=== PATIENT | female | born 1955 | race Caucasian/White ===

== ENCOUNTER → 2018-10-23 | Outpatient (CLI) | payer OTHER ==
[~2018-10-23] VITALS: Ht 160 cm; Wt 52.2 kg
[~2018-10-23] MED LIST: ALLERGY RELIEF10 M3 PO; BENADRYL25 MG PO; CALCIUM 600 +1 EAC1 PO; CYMBALTA30 MG PO; GLUCOSAMINE &1 EAC1 PO; HYDROCODON-ACE1 EAC5 PO; LISINOPRIL10 MG PO; METHADONE HCL 110 M1 PO; MORPHINE SULFAT15 M5 PO; MORPHINE SULFAT30 M5 PO; NEURONTIN 300300 M1 PO; ONE DAILY FOR1 EAC1 PO; OSTEO BI-FLEX1 EAC1 PO; OXYCODONE HCL10 MG PO; RANITIDINE 150150 M1 PO; SYNTHROID125 MC1 PO; UNICOMPLEX M TA1 TA1 PO; VITAMIN D IV
[2018-10-23 09:32] VITALS: BP 108/72
--- NOTE | 2018-10-23 10:19 | NUR ---
Pain Clinic Assessment: 1. History of Osteoarthritis: Left Lower Extremity Left Upper Extremity Right Lower Extremity Right Upper Extremity History of Rheumatoid Arthritis: Not Applicable 2. Height: 5 ft. 3 in. 160.0 cm. Weight: 115.0 lb. oz. 52.164 kg. Patient's BMI: 20.4 3. Vital Signs: BP: 108/72 Pulse: 70 Resp: 14 Temp: 02 Sat: 98 ECG Mon: 4. Pain Intensity: 7 5. Fall Risk: Dizziness: N Needs help standing or walking: N Fallen in the last 3 months: N Fall risk comments: 6. Patient on Blood Thinner: None 7. History of Hypertension: Y 8. Opioid Therapy greater than 6 weeks: Y Opiate Contract Signed: 9. Risk Assessment Tool Provided: LOW-0 10. Functional Assessment Tool: 50/70 11. Recreational Drug Use: Never Drug Type: Tobacco Use: Former Smoker Tobacco Type: Amount or Packs/day: How Many Years: Alcohol Use: Yes Frequency: Daily Quant: 1-2
== END | disposition home or self-care (01) ==
LOC: PAIN 06:50
DX: M54.16 Radiculopathy, lumbar region (principal); G89.29 Other chronic pain; I10 Essential (primary) hypertension; K75.9 Inflammatory liver disease, unspecified; E07.9 Disorder of thyroid, unspecified; Z98.890 Other specified postprocedural states; Z79.899 Other long term (current) drug therapy

== ENCOUNTER → 2018-12-25 | Outpatient (CLI) | payer OTHER ==
[~2018-12-25] VITALS: Ht 160 cm; Wt 56.3 kg
[2018-12-25 08:34] VITALS: BP 136/77
--- NOTE | 2018-12-25 08:50 | NUR ---
Pain Clinic Assessment: 1. History of Osteoarthritis: Left Lower Extremity Left Upper Extremity Right Lower Extremity Right Upper Extremity History of Rheumatoid Arthritis: Not Applicable 2. Height: 5 ft. 3 in. 160.0 cm. Weight: 124.2 lb. oz. 56.337 kg. Patient's BMI: 22.0 3. Vital Signs: BP: 136/77 Pulse: 60 Resp: 14 Temp: 02 Sat: 98 ECG Mon: 4. Pain Intensity: 7 5. Fall Risk: Dizziness: N Needs help standing or walking: N Fallen in the last 3 months: N Fall risk comments: 6. Patient on Blood Thinner: None 7. History of Hypertension: Y 8. Opioid Therapy greater than 6 weeks: Y Opiate Contract Signed: 9. Risk Assessment Tool Provided: LOW-0 10. Functional Assessment Tool: 50/70 11. Recreational Drug Use: Never Drug Type: Tobacco Use: Former Smoker Tobacco Type: Amount or Packs/day: How Many Years: Alcohol Use: Yes Frequency: Quant:
--- NOTE | 2019-01-02 12:16 | HPC ---
[facility] [address] [place] [address] PAIN MANAGEMENT CONSULTATION Name: KELSEY FOWLER Room #: REG MIKEL Jones.#: [id number] Admission: 12/25/18 ������������������ Attend Phys: Lj Cid DO Discharge: ������������������ Date of : 51 Report #: [id number] THIS REPORT FOR: //name// CC: Ashley Cid DATE OF SERVICE: 12/25/2018 CHIEF COMPLAINT: Low back pain and bilateral lower extremity pain with paresthesias. HISTORY OF PRESENT ILLNESS: As you know, the patient is a very pleasant 63-year-old female returning today in followup visit to undergo next in the series of lumbar epidural injections. The patient reports good and prolonged efficacy with previous epidural injection, noting improvement of 75% lasting for nearly 6 weeks. Unfortunately, her symptoms have begun to return. She now indicates pain is constant, steady, continuous, burning, aching, cramping, shooting, tender, stabbing, sharp, throbbing, pulling, pounding, gnawing, crushing and debilitating. She indicates pain is exacerbated with lying down and remaining still and improves with movement, repositioning, activity and epidural injections. She returns today in followup visit to undergo next in the series of epidural injections as she notes good benefit. ALLERGIES: CODEINE, AMOXICILLIN AND VANCOMYCIN. CURRENT MEDICATIONS: See chart. SOCIAL HISTORY: The patient denies tobacco, alcohol, IV or illicit drug use. She is unaccompanied today. PQRS: The patient has known arthritic changes of the lumbar spine, bilateral hands and bilateral knees. She denies any rheumatoid arthritis. She is placing current pain score at a 7/10. She is not a fall risk and has not had fall in the last 3 months. She is not on blood thinners. She is treated for hypertension. She is on chronic opioids, but has a low opioid addiction potential. Pain impact score of 50/70 indicating severe interference of daily activities secondary to pain. PHYSICAL EXAMINATION: VITAL SIGNS: Blood pressure 136/77, pulse 60, respiratory rate 14 and unlabored. The patient is 98% on room air. Height 5 feet 3 inch tall, weight 124.2 pounds and BMI calculated 22. GENERAL: Well-developed, well-nourished, well-hydrated 63-year-old female appearing stated age, pain is rated around 7/10. [address] [address] PAIN MANAGEMENT CONSULTATION Name: KELSEY FOWLER Room #: REG CLTasha JonesVarinder#: [id number] Admission: 12/25/18 ������������������ Attend Phys: Lj Cid DO Discharge: ������������������ Date of : 51 Report #: [id number] HEENT: Normocephalic and atraumatic. Pupils are equal, round and reactive to light. EXTREMITIES: Show no clubbing, no cyanosis and no edema. MUSCULOSKELETAL: Lower extremity strength is symmetrical again today 5/5. Muscle bulk and tone is equal and symmetrical in comparing left lower extremity to right. Seated straight leg raising is negative. Supine straight leg raising remains positive on the right. Reginaldo's test is negative. Modified Gaenslen's is positive for axial low back pain. Ankle clonus is negative. ASSESSMENT: 1. Symptomatic lumbar radiculopathy. 2. Spinal stenosis of the lumbar spine. 3. Displacement of a lumbar intervertebral disk with radiculopathy. 4. Lumbosacral spondylosis with radiculopathy. 5. Lumbar degeneration. 6. Chronic intractable pain. PLAN: 1. The patient returns today in followup visit to undergo next in the series of lumbar epidural injections under fluoroscopic guidance. The patient feels the epidural injections are working beneficially for pain control. Previous epidural injection gave 75% improvement in overall pain lasting for nearly 6 weeks. Unfortunately, her symptoms have begun to return. She returns to undergo next in the series of lumbar epidural injections. She has been advised risks and benefits, states understood and wished to proceed. 2. No medication changes made at today's visit. The patient will continue current medical therapy as previously prescribed. 3. We will see the patient back in followup visit on an as needed basis for next in the series of lumbar epidural injections. PROCEDURE NOTE DESCRIPTION OF PROCEDURE: L5-S1 right paramedian epidural steroid injection under fluoroscopic guidance. After obtaining written consent, the patient was taken back to fluoroscopy suite, placed in prone position with pillow under abdomen to decrease lumbar lordosis. Skin overlying the lumbosacral area was then prepped and draped in aseptic fashion. L5-S1 vertebral interspace identified by AP fluoroscopy. Skin and subcutaneous tissue overlying target site of injection anesthetized with 3 mL of 1% lidocaine. A 20-gauge 3-1/2 inch Tuohy needle was advanced under fluoroscopic guidance towards the epidural space using a right paramedian approach. Epidural space identified using loss of resistance to air technique. After negative aspiration for heme or cerebrospinal fluid, 1 mL of Omnipaque injected. Lumbar epidurogram [address] [address] PAIN MANAGEMENT CONSULTATION Name: KELSEY FOWLER Room #: REG MIKEL Colón#: [id number] Admission: 12/25/18 ������������������ Attend Phys: Lj Cid DO Discharge: ������������������ Date of : 51 Report #: [id number] was confirmed using both AP and lateral fluoroscopy. After negative aspiration for heme or cerebrospinal fluid, 5 mL of a solution containing 2 mL 40 mg per mL, 80 mg total triamcinolone, 3 mL lidocaine 1% injected slowly. Needle retracted alf, flushed with 1 mL of 1% lidocaine and then removed. Sterile bandage placed over injection site. No new motor deficits present in lower extremity following procedure. The patient tolerated the procedure well and carefully escorted to recovery room in stable condition. No apparent complications. After meeting discharge criteria, the patient discharged home. ��������������������������������������������� <ELECTRONICALLY SIGNED> ���������������������������������������� By: Lj Cid DO ��������������������������������������������� 01/02/19 1216 0712 [id number] Lj Cid DO /nt
== END | disposition home or self-care (01) ==
LOC: PAIN 06:34
DX: M51.16 Intervertebral disc disorders with radiculopathy, lumbar region (principal); M48.061 Spinal stenosis, lumbar region without neurogenic claudication; M47.27 Other spondylosis with radiculopathy, lumbosacral region; G89.29 Other chronic pain; Z87.891 Personal history of nicotine dependence; Z88.1 Allergy status to other antibiotic agents; Z88.8 Allergy status to other drugs, medicaments and biological substances; Z79.899 Other long term (current) drug therapy

== ENCOUNTER → 2019-02-19 | Outpatient (CLI) | payer OTHER ==
[~2019-02-19] VITALS: Ht 160 cm; Wt 50.8 kg
--- NOTE | ~2019-02-19 | HPC ---
[facility] [address] [place] [address] PAIN MANAGEMENT CONSULTATION Name: KELSEY FOWLER Room #: REG Tasha Marquis.#: [id number] Admission: 02/19/19 ������������������ Attend Phys: Lj Cid DO Discharge: ������������������ Date of : 51 Report #: [id number] THIS REPORT FOR: //name// CC: SAMANTHA Cid DATE OF SERVICE: 02/19/2019 CHIEF COMPLAINT: Low back pain, bilateral lower extremity pain and paresthesias, right greater than left. HISTORY OF PRESENT ILLNESS: As you know, the patient is a very pleasant 63-year-old female returning in followup visit to undergo next in the series of lumbar epidural injections. The patient reports pain level of 6/10 today. The patient states pain is constant, steady, continuous, burning, aching, cramping, shooting, tenderness, stabbing, sharp, throbbing, pulling, pounding, gnawing, crushing when describing pain. She states that lying down being still and movement tends to exacerbate symptoms; lying down, medications, hot bath and epidural injections tend to improve pain. She indicates 80% improvement in overall pain with previous epidural injection. Unfortunately, the patient's symptoms have begun to return. She returns today in followup visit to undergo next in the series of injections. No new injury, no new trauma that precipitated recurrence of pain. ALLERGIES: CODEINE, AMOXICILLIN, AND VANCOMYCIN. CURRENT MEDICATIONS: See chart. SOCIAL HISTORY: The patient denies tobacco, alcohol, IV or illicit drug use. She is unaccompanied today. PQRS: The patient has known osteoarthritic changes of the lumbar spine, bilateral hands and bilateral knees. Denies rheumatoid arthritis. She is placing pain today at around 6/10, not a fall risk, has not had a fall in last 3 months, not on blood thinners, but is treated for hypertension. She is on chronic opioids with low opiate addiction potential. She is placing pain impact score 50/70 indicating severe interference of daily activities secondary to pain. PHYSICAL EXAMINATION: VITAL SIGNS: Blood pressure 124/82, pulse 84, respiratory rate 16 and unlabored. The patient is 96% on room air. Height 5 feet 3 inches tall, weight 112 pounds, BMI calculated 19.8. GENERAL: Well-developed, well-nourished, well-hydrated, 63[place] [address] PAIN MANAGEMENT CONSULTATION Name: KELSEY FOWLER Room #: REG CLI Renetta#: [id number] Admission: 02/19/19 ������������������ Attend Phys: Lj Cid DO Discharge: ������������������ Date of : 51 Report #: [id number] appearing stated age, pain is rated around 6/10. HEENT: Normocephalic, atraumatic. Pupils are equal, round, reactive to light. EXTREMITIES: Show no clubbing, no cyanosis, and no edema. MUSCULOSKELETAL: Lower extremity strength remains symmetrical. Muscle bulk and tone is equal and symmetrical in lower extremities. Muscle strength 5/5. Seated straight leg raising negative. Supine straight leg raising positive on the right. Reginaldo's test negative. Gait mildly antalgic favoring right lower extremity over left. ASSESSMENT: 1. Symptomatic lumbar radiculopathy. 2. Spinal stenosis of the lumbar spine. 3. Displacement of lumbar intervertebral disk with radiculopathy. 4. Lumbosacral spondylosis with radiculopathy. 5. Lumbar degeneration. 6. Chronic intractable pain. PLAN: 1. The patient has returned today in followup visit to undergo next in the series of lumbar epidural injections under fluoroscopic guidance to build on success of previous intervention. The patient reports a 60% improvement in overall pain with previous epidural injection, returning today to undergo next in the series in hopes of improving pain further. The patient denies new injury, new trauma or any changes in medical history since our last visit. 2. No medication changes made at today's visit. The patient will continue current medical therapy as previously prescribed. 3. We will see the patient back in followup visit on an as needed basis for possible next in the series of lumbar epidural injections. PROCEDURE NOTE DESCRIPTION OF PROCEDURE: L5-S1 right parasagittal epidural steroid injection under fluoroscopic guidance. After obtaining written consent, the patient was taken back to fluoroscopy suite, placed in prone position with pillow under abdomen to decrease lumbar lordosis. Skin overlying lumbosacral area, then prepped and draped in aseptic fashion. Lumbar intervertebral spaces identified by AP fluoroscopy. Skin and subcutaneous tissue overlying target site of injection and anesthetized with 3 mL of 1% lidocaine. A 20-gauge 3-1/2 inch Tuohy needle advanced under fluoroscopic guidance towards the epidural space using right parasagittal approach. Epidural space identified using loss of resistance to air technique. After negative aspiration for heme or cerebrospinal fluid, 1 mL of Omnipaque injected. Lumbar epidurogram confirmed using both AP and lateral fluoroscopy. After negative aspiration for [facility] [address] [place] [address] PAIN MANAGEMENT CONSULTATION Name: KELSEY FOWLER Room #: REG MIKEL Colón#: [id number] Admission: 02/19/19 ������������������ Attend Phys: Lj Cid DO Discharge: ������������������ Date of : 51 Report #: [id number] heme or cerebrospinal fluid, 5 mL of solution containing 2 mL 40 mg per mL, 80 mg total triamcinolone, 3 mL lidocaine 1% injected slowly. Needle then retracted approximately half way, flushed with 1 mL of 1% lidocaine and removed. Sterile bandage placed over injection site. No new motor deficits present in the lower extremities following procedure. The patient tolerated procedure well, carefully escorted to recovery room in stable condition. No apparent complications. After meeting discharge criteria, the patient discharged home. ��������������������������������������������� ���������������������������������������� By: ��������������������������������������������� 1654 [id number] Lj Cid DO /nt
[2019-02-19 09:26] VITALS: BP 124/82
--- NOTE | 2019-02-19 09:46 | NUR ---
Pain Clinic Assessment: 1. History of Osteoarthritis: Left Lower Extremity Left Upper Extremity Right Lower Extremity Right Upper Extremity History of Rheumatoid Arthritis: Not Applicable 2. Height: 5 ft. 3 in. 160.0 cm. Weight: 112.0 lb. oz. 50.803 kg. Patient's BMI: 19.8 3. Vital Signs: BP: 124/82 Pulse: 84 Resp: 16 Temp: 02 Sat: 96 ECG Mon: 4. Pain Intensity: 6 5. Fall Risk: Dizziness: N Needs help standing or walking: N Fallen in the last 3 months: N Fall risk comments: 6. Patient on Blood Thinner: None 7. History of Hypertension: Y 8. Opioid Therapy greater than 6 weeks: Y Opiate Contract Signed: 9. Risk Assessment Tool Provided: LOW-0 10. Functional Assessment Tool: 50/70 11. Recreational Drug Use: Never Drug Type: Tobacco Use: Former Smoker Tobacco Type: Amount or Packs/day: How Many Years: Alcohol Use: Yes Frequency: Quant:
== END | disposition home or self-care (01) ==
LOC: PAIN 06:55
DX: M51.16 Intervertebral disc disorders with radiculopathy, lumbar region (principal); M47.27 Other spondylosis with radiculopathy, lumbosacral region; M48.061 Spinal stenosis, lumbar region without neurogenic claudication; G89.29 Other chronic pain; M19.90 Unspecified osteoarthritis, unspecified site; I10 Essential (primary) hypertension; Z88.1 Allergy status to other antibiotic agents; Z88.8 Allergy status to other drugs, medicaments and biological substances; Z87.891 Personal history of nicotine dependence; Z79.899 Other long term (current) drug therapy

== ENCOUNTER → 2019-04-30 | Outpatient (CLI) | payer OTHER ==
[~2019-04-30] VITALS: Ht 160 cm; Wt 54.2 kg
[2019-04-30 08:51] VITALS: BP 141/85
--- NOTE | 2019-04-30 09:00 | NUR ---
Pain Clinic Assessment: 1. History of Osteoarthritis: Left Lower Extremity Left Upper Extremity Right Lower Extremity Right Upper Extremity History of Rheumatoid Arthritis: Not Applicable 2. Height: 5 ft. 3 in. 160.0 cm. Weight: 119.4 lb. oz. 54.159 kg. Patient's BMI: 21.2 3. Vital Signs: BP: 141/85 Pulse: 65 Resp: 14 Temp: 02 Sat: 100 ECG Mon: 4. Pain Intensity: 6 5. Fall Risk: Dizziness: N Needs help standing or walking: N Fallen in the last 3 months: N Fall risk comments: 6. Patient on Blood Thinner: None 7. History of Hypertension: Y 8. Opioid Therapy greater than 6 weeks: Y Opiate Contract Signed: 9. Risk Assessment Tool Provided: LOW-0 10. Functional Assessment Tool: 50/70 11. Recreational Drug Use: Never Drug Type: Tobacco Use: Former Smoker Tobacco Type: Amount or Packs/day: How Many Years: Alcohol Use: Yes Frequency: Daily Quant: 1-2 GLASSES OF WINE
--- NOTE | 2019-05-07 07:57 | HPC ---
[facility] [address] [place] [address] PAIN MANAGEMENT CONSULTATION Name: KELSEY FOWLER Room #: REG MIKEL Jones.#: [id number] Admission: 04/30/19 Attend Phys: Lj Cid DO Discharge: Date of : 51 Report #: [id number] THIS REPORT FOR: //name// CC: Ashley Cid DATE OF SERVICE: 04/30/2019 REFERRING PHYSICIAN: Ashley Cerna MD CHIEF COMPLAINT: Low back pain, bilateral lower extremity pain, right greater than left. HISTORY OF PRESENT ILLNESS: As you know, the patient is a very pleasant 63-year-old female who returns today in followup visit to undergo next in the series of lumbar epidural injections under fluoroscopic guidance. The patient reports excellent benefit with epidural injections, the most recent providing approximately 80% improvement in overall pain. She returns today in followup visit stating pain is constant, steady, continuous, burning, aching, cramping, shooting tender, stabbing, sharp, throbbing, pulling, pounding, gnawing, crushing, numbness and tingling. States pain is exacerbated with lying down, being still and movement, improves with repositioning activities and epidural injections. She returns today in followup visit, denying any new injury or trauma or even changes in medication management. She returns to undergo next in the series of lumbar epidural injections. ALLERGIES: CODEINE, AMOXICILLIN, AND VANCOMYCIN. CURRENT MEDICATIONS: See extensive list in chart. SOCIAL HISTORY: The patient denies tobacco, alcohol, IV or illicit drug use. She is unaccompanied today. PQRS: The patient has known arthritic changes of the lumbar spine, bilateral hands, bilateral knees, no rheumatoid arthritis. She is placing current pain score 6/10. She is not a fall risk, has not had a fall in last 3 months. She is not on blood thinners, but is treated for hypertension. She is on chronic opioids and has a low opiate addiction potential. Pain impact score of 50/70 indicating moderate to severe interference of daily activities secondary to pain. PHYSICAL EXAMINATION: VITAL SIGNS: Blood pressure 141/85, pulse 65, respiratory rate 14 and unlabored. The patient is 100% on room air. Height 5 feet 3 inches tall, [place] [address] PAIN MANAGEMENT CONSULTATION Name: KELSEY FOWLER Room #: REG [facility].#: [id number] Admission: 04/30/19 Attend Phys: Lj Cid DO Discharge: Date of : 51 Report #: [id number] weight 119.4 pounds, BMI calculated 21.2. GENERAL: Well-developed, well-nourished, well-hydrated 63-year-old female appearing stated age, pain is rated around 6/10. HEENT: Normocephalic, atraumatic. Pupils equal, round, reactive to light. Speech is fluent. The patient deemed an excellent historian. EXTREMITIES: Show no clubbing, no cyanosis, and no edema. MUSCULOSKELETAL: Lower extremity strength remains symmetrical, 5/5. Muscle bulk and tone is symmetrical in comparing lower extremities, right versus left. Seated straight leg raising remains negative. Supine straight leg raising is positive on the right at about 65-70 degree angle. TARYN'S test negative. Gait mildly antalgic. Lumbar provocation testing is met with slight increase in axial back pain. ASSESSMENT: 1. Symptomatic lumbar radiculopathy. 2. Spinal stenosis of the lumbar spine. 3. Displacement of lumbar intervertebral disk with radiculopathy. 4. Lumbosacral spondylosis with radiculopathy. 5. Lumbar degeneration. 6. Chronic intractable pain. PLAN: 1. The patient returns today in followup visit to undergo next in the series of lumbar epidural injections under fluoroscopic guidance. The patient reports excellent benefit with the epidural injections, the most recent providing 80% improvement in overall pain lasting for nearly 6 weeks. She returns today in followup visit, denying any changes in medical history or injury or trauma that may have led to symptom reoccurrence. She requests to undergo next in the series of epidural injections. The patient was advised risks and benefits of a lumbar epidural injection. These risks include but are not necessarily limited to bleeding, bruising, infection, worsening pain, no relief of pain, also risk of temporary or permanent muscle weakness, temporary or permanent nerve damage, possible paralysis, post-dural puncture headache and . The patient states she understood and wished to proceed. 2. No medication changes made at today's visit. The patient will continue current medical therapy. 3. We will see the patient back in followup visit on an as needed basis for the next in the series of lumbar epidural injections. We are hopeful the patient will receive good analgesic benefit and prolonged pain relief with this injection PROCEDURE NOTE DESCRIPTION OF PROCEDURE: L5-S1 right paramedian epidural steroid injection [facility] [address] [place] [address] PAIN MANAGEMENT CONSULTATION Name: KELSEY FOWLER Room #: REG MIKEL Colón#: [id number] Admission: 04/30/19 Attend Phys: Lj Cid DO Discharge: Date of : 51 Report #: [id number] under fluoroscopic guidance. After obtaining written consent, the patient was taken back to fluoroscopy suite, placed in prone position with pillow under abdomen to decrease lumbar lordosis. Skin overlying lumbosacral area was then prepped and draped in aseptic fashion. L5-S1 vertebral interspace identified by AP fluoroscopy. Skin and subcutaneous tissue overlying target site of injection anesthetized with 3 mL of 1% lidocaine. A 20-gauge 3-1/2 inch Tuohy needle advanced under fluoroscopic guidance towards the epidural space using a right paramedian approach. Epidural space identified using loss of resistance to air technique. After negative aspiration for heme or cerebrospinal fluid, 1 mL of Omnipaque injected. Lumbar epidurogram confirmed using both AP and lateral fluoroscopy. After negative aspiration for heme or cerebrospinal fluid, 5 mL of a solution containing 2 mL 40 mg per mL, 80 mg total triamcinolone along with 3 mL of lidocaine 1% injected slowly. Needle then retracted detention, flushed with 1 mL of 1% lidocaine and then removed. Sterile bandage placed over injection site. No new motor deficits present in the lower extremities following procedure. The patient tolerated procedure well, carefully escorted to recovery room in stable condition. No apparent complication. After meeting discharge criteria, the patient discharged home. <ELECTRONICALLY SIGNED> By: Lj Cid DO 05/07/19 [id number] Lj Cid DO /nt
== END | disposition home or self-care (01) ==
LOC: PAIN 06:50
DX: M54.5 Low back pain (principal); M51.16 Intervertebral disc disorders with radiculopathy, lumbar region; M48.061 Spinal stenosis, lumbar region without neurogenic claudication; M47.27 Other spondylosis with radiculopathy, lumbosacral region; G89.29 Other chronic pain; I10 Essential (primary) hypertension; M19.90 Unspecified osteoarthritis, unspecified site; Z98.890 Other specified postprocedural states; Z79.891 Long term (current) use of opiate analgesic; Z88.8 Allergy status to other drugs, medicaments and biological substances; Z79.899 Other long term (current) drug therapy

== ENCOUNTER → 2019-07-02 | Outpatient (CLI) | payer OTHER ==
[~2019-07-02] VITALS: Ht 160 cm; Wt 56.5 kg
--- NOTE | ~2019-07-02 | HPC ---
[facility] [address] [place] [address] PAIN MANAGEMENT CONSULTATION Name: KELSEY FOWLER [id number] Admission: 07/02/19 Attend Phys: Lj Cid DO Discharge: Date of : 51 Report #: [id number] THIS REPORT FOR: //name// CC: Ashley Cid DATE OF SERVICE: 07/02/2019 REFERRING PHYSICIAN: Ashley Cerna MD CHIEF COMPLAINT: Low back pain, bilateral lower extremity pain, right greater than left. HISTORY OF PRESENT ILLNESS: As you know, the patient is a very pleasant 63-year-old female who returns today in followup visit requesting to undergo next in the series of lumbar epidural injections under fluoroscopic guidance. Her most recent epidural injection provided on 04/30/2019 gave 95% improvement in overall pain lasting for at least 6 weeks. Unfortunately, her symptoms have begun to return to a level now of 6/10. She returns today in followup visit to undergo next in the series of lumbar epidural injections to build on success of previous intervention. She denies injury or trauma that has led to progression of pain. ALLERGIES: CODEINE, AMOXICILLIN and VANCOMYCIN. CURRENT MEDICATIONS: See extensive list in chart. SOCIAL HISTORY: The patient denies tobacco, alcohol, IV or illicit drug use. She is unaccompanied today. IMAGING: No new imaging available. PQRS: The patient has known arthritic changes of the lumbar spine, bilateral hands, bilateral knees. She denies rheumatoid arthritis. She indicates pain today at a level of 6/10, not a fall risk, has not had a fall in last 3 months, not on blood thinners, is treated for hypertension. She is on chronic opioids being provided by her primary care. She has a low opiate addiction potential. Pain impact score 50/70 indicating severe interference of daily activities secondary to pain. PHYSICAL EXAMINATION: VITAL SIGNS: Blood pressure 115/77, pulse 83, respiratory rate 14 and unlabored. The patient is 97% on room air. Height 5 feet 3 inches tall, weight 124.6 pounds, BMI calculated 22.1. [facility] [address] [place] [address] PAIN MANAGEMENT CONSULTATION Name: KELSEY FOWLER MARY Room #: REG [facility]#: [id number] Admission: 07/02/19 Attend Phys: Lj Cid DO Discharge: Date of : 51 Report #: [id number] GENERAL: Well-developed, well-nourished, well-hydrated 63-year-old female appearing stated age, pain is rated today at 6/10. HEENT: Normocephalic, atraumatic. Pupils equal, round, reactive to light. EXTREMITIES: Show no clubbing, no cyanosis, no edema. MUSCULOSKELETAL: Lumbar provocation testing again met with slight increase in axial back pain. Gait appears normal. Seated straight leg raising negative. Supine straight leg raising positive on the right. Modified Gaenslen's text positive for axial low back pain. Ankle clonus negative. Babinski is negative. Muscle bulk and tone appears equal and symmetrical in lower extremities, intact to light touch from L1 through S2 dermatomes. ASSESSMENT: 1. Symptomatic lumbar radiculopathy. 2. Spinal stenosis of lumbar spine. 3. Displacement of lumbar intervertebral disk with radiculopathy. 4. Lumbosacral spondylosis with radiculopathy. 5. Lumbar degeneration. 6. Chronic intractable pain. PLAN: 1. The patient returns today in followup visit requesting to undergo lumbar epidural injection under fluoroscopic guidance to build on success of previous intervention. The patient reports excellent benefit with previous epidural injection reporting a total of 95% improvement in overall pain lasting for at least 6 weeks with a slow and progressive return of symptoms, now reporting pain at 6/10. She returns today to undergo lumbar epidural injection under fluoroscopic guidance. She has been advised risks and benefits of procedure, states understood and wished to proceed. 2. No medication changes made at today's visit. The patient will continue current medical therapy as prior prescribed. 3. We will see the patient back in followup visit on an as needed basis for possible next in the series of epidural injections. DESCRIPTION OF PROCEDURE: L5-S1 right paramedian epidural steroid injection under fluoroscopic guidance. After obtaining written consent, the patient was taken back to fluoroscopy suite, placed in prone position with pillow under abdomen to decrease lumbar lordosis. Skin overlying the lumbosacral area then prepped and draped in aseptic fashion. The L5-S1 vertebral interspace was identified by AP fluoroscopy. Skin and subcutaneous tissue overlying target site of injection anesthetized with 3 mL of 1% lidocaine. A 20-gauge 3-1/2 inch Tuohy needle was advanced under fluoroscopic guidance towards the epidural space using a right paramedian approach. Epidural space identified using loss of resistance to air technique. After negative aspiration [facility] [address] [place] [address] PAIN MANAGEMENT CONSULTATION Name: KELSEY FOWLER Room #: REG MIKEL Colón#: [id number] Admission: 07/02/19 Attend Phys: Lj Cid DO Discharge: Date of : 51 Report #: [id number] for heme or cerebrospinal fluid, 1 mL of Omnipaque injected. Lumbar epidurogram confirmed using both AP and lateral fluoroscopy. After negative aspiration for heme or cerebrospinal fluid, 5 mL of a solution containing 2 mL 40 mg per mL, 80 mg total triamcinolone along with 3 mL lidocaine 1% injected slowly. Needle retracted shelter, flushed with 1 mL of 1% lidocaine and then removed. Sterile bandage placed over injection site. No new motor deficits present in the lower extremities following procedure. The patient tolerated procedure well, carefully escorted to recovery room in stable condition. No apparent complications. After meeting discharge criteria, the patient discharged home. By: [id number] Lj Cid DO /nt
[2019-07-02 09:09] VITALS: BP 115/77
--- NOTE | 2019-07-02 09:23 | NUR ---
Pain Clinic Assessment: 1. History of Osteoarthritis: Left Lower Extremity Left Upper Extremity Right Lower Extremity Right Upper Extremity History of Rheumatoid Arthritis: DENIES 2. Height: 5 ft. 3 in. 160.0 cm. Weight: 124.6 lb. oz. 56.518 kg. Patient's BMI: 22.1 3. Vital Signs: BP: 115/77 Pulse: 83 Resp: 14 Temp: 02 Sat: 97 ECG Mon: 4. Pain Intensity: 6 5. Fall Risk: Dizziness: N Needs help standing or walking: N Fallen in the last 3 months: N Fall risk comments: 6. Patient on Blood Thinner: None 7. History of Hypertension: Y 8. Opioid Therapy greater than 6 weeks: Y Opiate Contract Signed: 9. Risk Assessment Tool Provided: LOW-0 10. Functional Assessment Tool: 50/70 11. Recreational Drug Use: Never Drug Type: Tobacco Use: Former Smoker Tobacco Type: Amount or Packs/day: How Many Years: Alcohol Use: Yes Frequency: Daily Quant: WINE DAILY WITH DINNER
== END | disposition home or self-care (01) ==
LOC: PAIN 08:08
DX: M51.16 Intervertebral disc disorders with radiculopathy, lumbar region (principal); M47.27 Other spondylosis with radiculopathy, lumbosacral region; M48.061 Spinal stenosis, lumbar region without neurogenic claudication; G89.29 Other chronic pain; I10 Essential (primary) hypertension; M19.90 Unspecified osteoarthritis, unspecified site; Z98.890 Other specified postprocedural states; Z88.8 Allergy status to other drugs, medicaments and biological substances; Z79.891 Long term (current) use of opiate analgesic; Z79.899 Other long term (current) drug therapy

== ENCOUNTER → 2019-09-02 | Outpatient (CLI) | payer OTHER | LOC: SJCVCIMAG 10:08 | DX: R06.00 Dyspnea, unspecified (principal); R94.31 Abnormal electrocardiogram [ECG] [EKG]; I10 Essential (primary) hypertension; E78.5 Hyperlipidemia, unspecified; E78.00 Pure hypercholesterolemia, unspecified; K21.9 Gastro-esophageal reflux disease without esophagitis; Z79.899 Other long term (current) drug therapy ==

== ENCOUNTER → 2019-09-03 | Outpatient (CLI) | payer OTHER ==
[~2019-09-03] VITALS: Ht 160 cm; Wt 59.9 kg
[2019-09-03 09:56] VITALS: BP 125/77
--- NOTE | 2019-09-03 10:02 | NUR ---
Pain Clinic Assessment: 1. History of Osteoarthritis: Left Lower Extremity Left Upper Extremity Right Lower Extremity Right Upper Extremity History of Rheumatoid Arthritis: DENIES 2. Height: 5 ft. 3 in. 160.0 cm. Weight: 132.0 lb. oz. 59.875 kg. Patient's BMI: 23.4 3. Vital Signs: BP: 125/77 Pulse: 65 Resp: 16 Temp: 02 Sat: 96 ECG Mon: 4. Pain Intensity: 6 5. Fall Risk: Dizziness: N Needs help standing or walking: N Fallen in the last 3 months: N Fall risk comments: 6. Patient on Blood Thinner: None 7. History of Hypertension: Y 8. Opioid Therapy greater than 6 weeks: Y Opiate Contract Signed: 9. Risk Assessment Tool Provided: LOW-0 10. Functional Assessment Tool: 50/70 11. Recreational Drug Use: Never Drug Type: Tobacco Use: Former Smoker Tobacco Type: Amount or Packs/day: How Many Years: Alcohol Use: Yes Frequency: Monthly Quant: 1
--- NOTE | 2019-09-10 07:45 | HPC ---
[facility] [place] [address] PAIN MANAGEMENT CONSULTATION Name: KELSEY FOWLER Room #: REG MIKEL Jones.#: [id number] Admission: 09/03/19 Attend Phys: Lj Cid DO Discharge: Date of : 51 Report #: [id number] THIS REPORT FOR: cc: Ashley Cerna MD, Jr.,Lj Wilder MD, DO ~ THIS REPORT FOR: //name// DATE OF SERVICE: 09/03/2019 CHIEF COMPLAINT: Low back pain, bilateral lower extremity pain with paresthesias with right greater than left. HISTORY OF PRESENT ILLNESS: As you know, the patient is a very pleasant 63-year-old female returning in followup visit to undergo next in the series of lumbar epidural injections under fluoroscopic guidance to address 6/10 pain. She indicates her pain is constant, steady and continuous. She describes the symptoms as burning, aching and shooting. She reports with previous epidural injection a 90% improvement in overall pain lasting for almost 6-1/2 weeks. Unfortunately, she has had a slow and progressive return of symptoms, now leading to pain level of 6/10. She returns today in followup visit, denying injury or trauma that may have led to symptom reoccurrence, requesting the next in the series of epidural injections. ALLERGIES: CODEINE, AMOXICILLIN, AND VANCOMYCIN. CURRENT MEDICATIONS: See chart. SOCIAL HISTORY: The patient denies tobacco, alcohol, IV or illicit drug use. She is retired. She is unaccompanied today. IMAGING: No new imaging available. PQRS: The patient has known arthritic changes of the lumbar spine, bilateral hands, bilateral knees. No rheumatoid arthritis. She is placing her pain intensity today 6/10. She is not a fall risk, has not had a fall in last 3 months. She is not on blood thinners, but is treated for hypertension. She is on chronic opioids and has a low opiate addiction potential based on our assessment tool. Pain impact of 50/70 indicating severe interference of daily activities secondary to pain. PHYSICAL EXAMINATION: VITAL SIGNS: Blood pressure 125/77, pulse 65, respiratory rate 16 and unlabored. The patient is 96% on room air. Height 5 feet 3 inches tall, weighs [facility] [address] [place] [address] PAIN MANAGEMENT CONSULTATION Name: KELSEY FOWLER Room #: REG [facility].#: [id number] Admission: 09/03/19 Attend Phys: Lj Cid DO Discharge: Date of : 51 Report #: [id number] 132 pounds, BMI calculated 23.4. GENERAL: Well-developed, well-nourished, well-hydrated 63-year-old female, appearing stated age, pain is rated today 6/10. HEENT: Normocephalic, atraumatic. Pupils equal, round, reactive to light. EXTREMITIES: Show no clubbing, no cyanosis, and no edema. MUSCULOSKELETAL: Lower extremity strength appears symmetrical 5/5, intact to light touch from L1 through S2 dermatomes. Gait is normal. Seated straight leg raising negative. Supine straight leg raising remains positive on the right at about 70-degree angle. Ankle clonus negative. Babinski is negative. ASSESSMENT: 1. Symptomatic lumbar radiculopathy. 2. Spinal stenosis of the lumbar spine. 3. Displacement of lumbar intervertebral disk with radiculopathy. 4. Lumbosacral spondylosis with radiculopathy. 5. Lumbar degeneration. 6. Chronic intractable pain. PLAN: 1. The patient returns today in followup visit to undergo lumbar epidural injection under fluoroscopic guidance. As you are aware, the patient received excellent benefit with previous epidural injections, the most recent giving 90% improvement in overall pain. She returns today to undergo next in the series of epidural injections to build on success of previous intervention and to address the 6/10 pain she is experiencing. She has been advised risks and benefits of the procedure, states understood and wished to proceed. 2. No medication changes made at today's visit. The patient will continue current medical therapy as prior prescribed. 3. We will see the patient back in followup visit on an as needed basis for possible next in the series of lumbar epidural injections. PROCEDURE NOTE DESCRIPTION OF PROCEDURE: L5-S1 right parasagittal epidural steroid injection under fluoroscopic guidance. After obtaining written consent, the patient was taken back to fluoroscopy suite, placed in prone position with pillow under abdomen to decrease lumbar lordosis. Skin overlying the lumbosacral area then prepped and draped in aseptic fashion. The L5-S1 vertebral interspace identified by AP fluoroscopy. Skin and subcutaneous tissue overlying target site of injection anesthetized with 3 mL of 1% lidocaine. A 20-gauge 3-1/2 inch Tuohy needle advanced under fluoroscopic guidance towards the epidural space using a right parasagittal approach. Epidural space identified using loss of resistance to air technique. After negative aspiration [facility] [address] [place] [address] PAIN MANAGEMENT CONSULTATION Name: KELSEY FOWLER Room #: REG [facility] Karen#: [id number] Admission: 09/03/19 Attend Phys: Lj Cid DO Discharge: Date of : 51 Report #: [id number] for heme or cerebrospinal fluid, 1 mL of Omnipaque injected. A lumbar epidurogram confirmed using both AP and lateral fluoroscopy. After negative aspiration for heme or cerebrospinal fluid, 5 mL of a solution containing 2 mL 40 mg per mL, 80 mg total triamcinolone along with 3 mL of lidocaine 1% injected slowly. Needle then retracted approximately half way, flushed with 1 mL of 1% lidocaine and then removed. Sterile bandage placed over injection site. There were no new motor deficits present in the lower extremities following procedure. The patient tolerated procedure well, carefully escorted to recovery room in stable condition. No apparent complications. After meeting discharge criteria, the patient discharged home. <ELECTRONICALLY SIGNED> By: Lj Cid DO 09/10/19 0745 [id number] Lj Cid DO /nt
== END | disposition home or self-care (01) ==
LOC: PAIN 06:50
DX: M51.16 Intervertebral disc disorders with radiculopathy, lumbar region (principal); M47.27 Other spondylosis with radiculopathy, lumbosacral region; M48.061 Spinal stenosis, lumbar region without neurogenic claudication; G89.29 Other chronic pain; I10 Essential (primary) hypertension; M19.90 Unspecified osteoarthritis, unspecified site; Z98.890 Other specified postprocedural states; Z79.899 Other long term (current) drug therapy; Z79.891 Long term (current) use of opiate analgesic; Z88.8 Allergy status to other drugs, medicaments and biological substances

== ENCOUNTER → 2019-11-05 | Outpatient (CLI) | payer OTHER ==
[~2019-11-05] VITALS: Ht 160 cm; Wt 59.9 kg
[~2019-11-05] MED LIST changes: +PEPCID40 MG PO
[2019-11-05 08:13] VITALS: BP 149/94
--- NOTE | 2019-11-05 08:29 | NUR ---
Pain Clinic Assessment: 1. History of Osteoarthritis: Left Lower Extremity Left Upper Extremity Right Lower Extremity Right Upper Extremity History of Rheumatoid Arthritis: DENIES 2. Height: 5 ft. 3 in. 160.0 cm. Weight: 132.0 lb. oz. 59.875 kg. Patient's BMI: 23.4 3. Vital Signs: BP: 149/94 Pulse: 82 Resp: 16 Temp: 02 Sat: 95 ECG Mon: 4. Pain Intensity: 8 5. Fall Risk: Dizziness: N Needs help standing or walking: N Fallen in the last 3 months: N Fall risk comments: 6. Patient on Blood Thinner: None 7. History of Hypertension: Y 8. Opioid Therapy greater than 6 weeks: Y Opiate Contract Signed: 9. Risk Assessment Tool Provided: LOW-0 10. Functional Assessment Tool: 50/70 11. Recreational Drug Use: Never Drug Type: Tobacco Use: Former Smoker Tobacco Type: Amount or Packs/day: How Many Years: Alcohol Use: Yes Frequency: Quant:
--- NOTE | 2019-11-06 12:25 | HPC ---
[facility] [address] [place] [address] PAIN MANAGEMENT CONSULTATION Name: KELSEY FOWLER Room #: REG MIKEL Colón#: [id number] Admission: 11/05/19 Attend Phys: Lj Cid DO Discharge: Date of : 51 Report #: [id number] THIS REPORT FOR: cc: FAM - No family physician/PCP Lj Smith Jr., MD, James E. DO ~ DATE OF SERVICE: 11/05/2019 REFERRING PHYSICIAN: Ashley Cerna MD CHIEF COMPLAINT: Low back pain, bilateral lower extremity pain and paresthesias. HISTORY OF PRESENT ILLNESS: As you know, the patient is a very pleasant 64-year-old female who returns today in followup visit reporting pain score of 8/10. She reports pain as constant, steady, continuous, burning, aching and shooting when describing symptoms. She states pain is exacerbated with standing for any length of time, sitting for any length of time, lying down tends to even exacerbate pain especially at night. Pain is alleviated with medications, repositioning and epidural injections. The most recent epidural injection provided 2 months ago gave 75% improvement in overall pain. Unfortunately, her symptoms have begun to return in its typical distribution. There has been no new injury or trauma. She returns today in followup visit requesting epidural injection under fluoroscopic guidance. ALLERGIES: CODEINE, AMOXICILLIN AND VANCOMYCIN. CURRENT MEDICATIONS: See chart. SOCIAL HISTORY: The patient denies tobacco, alcohol, IV illicit drug use. She is retired. She is unaccompanied at today's visit. PQRS: The patient has known arthritic changes of the lumbar spine, bilateral hips and mildly in the bilateral knees. No rheumatoid arthritis. She is placing pain intensity at 8/10, not a fall risk, has not had a fall in last 3 months. She is not on blood thinners, but is treated for hypertension. She is on chronic opioids and has a low opioid addiction potential based on our assessment tool. Pain impact is 50/70, moderate to severe interference of daily activities secondary to pain. PHYSICAL EXAMINATION: VITAL SIGNS: Blood pressure 149/94, pulse is 82, respiratory rate 16 and unlabored. The patient is 95% on room air. Height 5 feet 3 inches tall, weight 132 pounds, BMI calculated 23.4. GENERAL: Well-developed, well-nourished, well-hydrated 64-year-old female, [place] [address] PAIN MANAGEMENT CONSULTATION Name: KELSEY FOWLER Room #: REG MIKEL JonesVarinder#: [id number] Admission: 11/05/19 Attend Phys: Lj Cid DO Discharge: Date of : 51 Report #: [id number] appearing her stated age. She is placing current pain score 8/10. HEENT: Normocephalic, atraumatic. Pupils equal, round, reactive to light. NEUROLOGIC: Speech fluent. The patient deemed a good historian. EXTREMITIES: Show no clubbing, no cyanosis, and no edema. MUSCULOSKELETAL: Lower extremity strength is symmetrical 5/5, intact to light touch from L1 through S2 dermatomes. Seated straight leg raising negative. Supine straight leg raising positive. Reginaldo's test is negative. Modified Gaenslen's positive for axial low back pain. Ankle clonus negative. Babinski is negative. Gait appears normal. The patient is able to toe walk, heel walk without difficulty. ASSESSMENT: 1. Symptomatic lumbar radiculopathy. 2. Spinal stenosis of the lumbar spine. 3. Displacement of lumbar intervertebral disk with radiculopathy. 4. Lumbosacral spondylosis with radiculopathy. 5. Lumbar degeneration. 6. Chronic intractable pain. PLAN: 1. The patient returns today in followup visit requesting to undergo a lumbar epidural injection under fluoroscopic guidance. She has done very well with previous epidural injection reporting 75% improvement in overall pain with the previous epidural injection. Unfortunately, her symptoms have begun to return. She returns today in followup visit requesting to undergo next in the series of epidural injections under fluoroscopic guidance. The patient has been advised risks and benefits of this procedure. These risks include but are not necessarily limited to bleeding, bruising, infection, worsening pain, no relief of pain, also risk of temporary or permanent muscle weakness, temporary or permanent nerve damage, possible paralysis and . The patient has also been advised of the risks that she takes in this time of pandemic with COVID-19. She does run a higher risk of possible infection to minimal exposure of COVID based on steroid exposure and the reduction of her immune response. She also runs the risk of exacerbating symptoms if she has current COVID-19. The patient understands her risks and does wish to proceed. 2. No medication changes made at today's visit. The patient will continue current medical therapy as previously prescribed. 3. We will see the patient back in followup visit for possible next in the series of lumbar epidural injections. We are pleased to see the patient has done well with these injections and hopeful to see similar improvement with today's procedure. <ELECTRONICALLY SIGNED> By: Lj Cid DO 11/06/19 1225 [id number] [id number] Lj Cid, DO /nt
--- NOTE | 2019-11-06 12:25 | P ---
[facility] [place] [address] PROCEDURE REPORT Name: KELSEY FOWLER Room #: REG [facility].#: [id number] Admission: 11/05/19 Attend Phys: Lj Cid DO Discharge: Date of : 51 Report #: [id number] THIS REPORT FOR: cc: FAM - No family physician/PCP Lj Smith Jr., MD, James E. DO ~ DATE OF SERVICE: 11/05/2019 DESCRIPTION OF PROCEDURE: L5-S1 right parasagittal epidural injection under fluoroscopic guidance. After obtaining written consent, the patient was taken back to fluoroscopy suite, placed in prone position with pillow under abdomen to decrease lumbar lordosis. Skin overlying lumbosacral area then prepped and draped in aseptic fashion. The L5-S1 vertebral interspace identified by AP fluoroscopy. Skin and subcutaneous tissue overlying target site injection anesthetized with 3 mL of 1% lidocaine. A 20-gauge 3-1/2 inch Tuohy needle advanced under fluoroscopic guidance towards the epidural space using a right parasagittal approach. Epidural space identified using loss of resistance to air technique. After negative aspiration for heme or cerebrospinal fluid, 1 mL of Omnipaque injected. Lumbar epidurogram confirmed using both AP and lateral fluoroscopy. After negative aspiration for heme or cerebrospinal fluid, 5 mL of a solution containing 2 mL 40 mg per mL, 80 mg total triamcinolone along with 3 mL of lidocaine 1% injected slowly. Needle then retracted approximately half way, flushed with 1 mL of 1% lidocaine and then removed. Sterile bandage placed over injection site. No new motor deficits present in the lower extremities following procedure. The patient tolerated procedure well, carefully escorted to recovery room in stable condition. No apparent complications. After meeting discharge criteria, the patient discharged home. <ELECTRONICALLY SIGNED> By: Lj Cid DO 11/06/19 1225 0912 [id number] Lj Cid DO /nt
== END | disposition home or self-care (01) ==
LOC: PAIN 07:54
DX: M51.16 Intervertebral disc disorders with radiculopathy, lumbar region (principal); M48.061 Spinal stenosis, lumbar region without neurogenic claudication; M47.27 Other spondylosis with radiculopathy, lumbosacral region; G89.29 Other chronic pain; I10 Essential (primary) hypertension; M19.90 Unspecified osteoarthritis, unspecified site; Z98.890 Other specified postprocedural states; Z79.899 Other long term (current) drug therapy; Z88.8 Allergy status to other drugs, medicaments and biological substances

== ENCOUNTER → 2020-03-03 | Outpatient (CLI) | payer OTHER ==
[~2020-03-03] VITALS: Ht 160 cm; Wt 63.5 kg
[2020-03-03 08:56] VITALS: BP 118/78
--- NOTE | 2020-03-03 09:08 | NUR ---
Pain Clinic Assessment: 1. History of Osteoarthritis: Left Lower Extremity Left Upper Extremity Right Lower Extremity Right Upper Extremity History of Rheumatoid Arthritis: DENIES 2. Height: 5 ft. 3 in. 160.0 cm. Weight: 140.0 lb. oz. 63.504 kg. Patient's BMI: 24.8 3. Vital Signs: BP: 118/78 Pulse: 78 Resp: 16 Temp: 02 Sat: 100 ECG Mon: 4. Pain Intensity: 7 5. Fall Risk: Dizziness: N Needs help standing or walking: N Fallen in the last 3 months: N Fall risk comments: 6. Patient on Blood Thinner: None 7. History of Hypertension: Y 8. Opioid Therapy greater than 6 weeks: Y Opiate Contract Signed: 9. Risk Assessment Tool Provided: LOW-0 10. Functional Assessment Tool: 50/70 11. Recreational Drug Use: Never Drug Type: Tobacco Use: Former Smoker Tobacco Type: Cigarettes Amount or Packs/day: 1 ppd How Many Years: 28 Alcohol Use: No Frequency: Quant:
--- NOTE | 2020-03-03 12:21 | HPC ---
[facility] [place] [address] PAIN MANAGEMENT CONSULTATION Name: KELSEY FOWLER Room #: REG MIKEL Jones.#: [id number] Admission: 03/03/20 Attend Phys: Lj Cid DO Discharge: Date of : 51 Report #: [id number] THIS REPORT FOR: cc: Ashley Cerna MD, Cora A. MD Johnson, James E. DO ~ DATE OF SERVICE: 03/03/2020 REFERRING PHYSICIAN: Ashley Cerna MD CHIEF COMPLAINT: Low back pain, bilateral lower extremity pain with paresthesias. HISTORY OF PRESENT ILLNESS: As you know, the patient is a very pleasant 64-year-old female who has returned today in followup visit to undergo next in the series of lumbar epidural injections under fluoroscopic guidance. The patient continues to experience recurrent lumbar radicular symptoms for which she places pain score at 7/10. She indicates no new injury or trauma that may have led to symptom reoccurrence. She returns today to undergo next in the series of epidural injections. She reports that the previous epidural injection gave 80% improvement in overall pain lasting until just recently where she had slow and progressive return of symptoms. She has delayed her return to our clinic due to her immunocompromised state secondary to COVID-19 concerns. She returns today for the next in the series of epidural injections. She indicates she has not been in contact with anyone that has COVID nor has she had any constitutional symptoms consistent with COVID-19. ALLERGIES: CODEINE, AMOXICILLIN, AND VANCOMYCIN. CURRENT MEDICATIONS: See chart. SOCIAL HISTORY: The patient reports no IV or illicit drug use. She is a former smoker, smoked 1-pack tobacco per day for 28 years. She is retired, unaccompanied at today's visit. IMAGING: No new imaging available. PQRS: The patient has osteoarthritic changes of the lumbar spine, bilateral hips and bilateral knees. No rheumatoid arthritis. She is placing pain today at 7/10. She is not a fall risk nor has she had a fall in the last 3 months. She is not on blood thinners, but is treated for hypertension. She is on chronic opioids with low opiate addiction potential. Pain impact today is rated at 50/70, severe interference of daily activities secondary to pain. PHYSICAL EXAMINATION: [facility] [address] [place] [address] PAIN MANAGEMENT CONSULTATION Name: KELSEY FOWLER Room #: REG [facility].#: [id number] Admission: 03/03/20 Attend Phys: Lj Cid DO Discharge: Date of : 51 Report #: [id number] VITAL SIGNS: Blood pressure 118/78, pulse 78, respiratory rate 16 and unlabored. The patient is 100% on room air. Height 5 feet 3 inches tall, weight 140 pounds, BMI calculated 24.8. GENERAL: Well-developed, well-nourished, well-hydrated 64-year-old female, appearing stated age, pain is rated today 7/10. HEENT: Normocephalic, atraumatic. Pupils are equal, round and reactive. NEUROLOGIC: Speech is fluent. The patient is wearing a mask in compliance with COVID-19 restrictions. EXTREMITIES: Show no clubbing, no cyanosis. No appreciable edema. MUSCULOSKELETAL: Lower extremity strength remains symmetrical again today 11/18. Seated straight leg raising is negative. Supine straight leg raising is positive. Reginaldo's test is negative. Gait is mildly antalgic favoring right lower extremity over left. Ankle clonus negative. Babinski is negative. She is intact to light touch from L1 through S2 dermatomes. Lumbar provocation testing including extension, rotation, lateral flexion all intensify axial back pain, no radiation of symptoms. ASSESSMENT: 1. Symptomatic lumbar radiculopathy. 2. Spinal stenosis of the lumbar spine. 3. Displacement of lumbar intervertebral disk with radiculopathy. 4. Lumbosacral spondylosis with radiculopathy. 5. Lumbar degeneration. 6. Chronic intractable pain. PLAN: 1. The patient returns today in followup visit having noted 80% improvement in overall pain with the epidural injection provided at the last visit. Unfortunately, the patient's symptoms have begun to return. She denies injury or trauma. She returns today to undergo next in the series of epidural injections. She has been advised of the risks and benefits of this procedure. These risks include but are not necessarily limited to bleeding, bruising, infection, worsening pain, no relief of pain, also risk of temporary or permanent muscle weakness, temporary or permanent nerve damage, possible paralysis and . The patient states understood and wished to proceed. 2. No medication changes made at today's visit. The patient will continue current medical therapy as previously prescribed. 3. We will see the patient back in followup visit on an as needed basis for possible next in the series of lumbar epidural injections. We are hopeful the patient will see good and prolonged benefit with today's procedure. DESCRIPTION OF PROCEDURE: L5-S1 right parasagittal epidural steroid injection under fluoroscopic guidance. After obtaining written consent, the patient was taken back to fluoroscopy suite, placed in prone position with pillow under abdomen to decrease the lumbar [address] [address] PAIN MANAGEMENT CONSULTATION Name: KELSEY FOWLER Room #: REG CLI [place]#: [id number] Admission: 03/03/20 Attend Phys: Lj Cid DO Discharge: Date of : 51 Report #: [id number] lordosis. Skin overlying the lumbosacral area then prepped and draped in aseptic fashion. The L5-S1 vertebral interspace identified by AP fluoroscopy. Skin and subcutaneous tissue overlying target site of injection anesthetized with 3 mL of 1% lidocaine. A 20-gauge 3-1/2 inch Tuohy needle advanced under fluoroscopic guidance towards the epidural space using a right parasagittal approach. Epidural space identified using loss of resistance to air technique. After negative aspiration for heme or cerebrospinal fluid, 1 mL of Omnipaque injected. Lumbar epidurogram confirmed using both AP and lateral fluoroscopy. After negative aspiration for heme or cerebrospinal fluid, 5 mL of a solution containing 2 mL 40 mg per mL, 80 mg total triamcinolone along with 3 mL of lidocaine 1% injected slowly. Needle retracted assisted, flushed with 1 mL of 1% lidocaine and removed. Sterile bandage placed over injection site. There were no new motor deficits present in lower extremity following procedure. The patient tolerated the procedure well, carefully escorted to recovery room in stable condition. No apparent complications. After meeting discharge criteria, the patient discharged home. <ELECTRONICALLY SIGNED> By: Lj Cid DO 03/03/20 1221 [id number] Lj Cid DO /nt
== END | disposition home or self-care (01) ==
LOC: PAIN 12-31 10:33
PROVIDERS: ATTEND Anesthesiology Pain Medicine
DX: M51.16 Intervertebral disc disorders with radiculopathy, lumbar region (principal); M47.27 Other spondylosis with radiculopathy, lumbosacral region; M48.061 Spinal stenosis, lumbar region without neurogenic claudication; G89.29 Other chronic pain; I10 Essential (primary) hypertension; M19.90 Unspecified osteoarthritis, unspecified site; Z79.899 Other long term (current) drug therapy; Z98.890 Other specified postprocedural states; Z79.891 Long term (current) use of opiate analgesic; Z88.8 Allergy status to other drugs, medicaments and biological substances

== ENCOUNTER → 2020-04-28 | Outpatient (CLI) | payer OTHER ==
[~2020-04-28] VITALS: Ht 160 cm; Wt 65.7 kg
--- NOTE | ~2020-04-28 | HPC ---
[facility] [place] [place] [address] [place] [address] PAIN MANAGEMENT CONSULTATION Name: KELSEY FOWLER Room #: REG MIKEL Karen.#: [id number] Admission: 04/28/20 Attend Phys: Lj Cid DO Discharge: Date of : 51 Report #: [id number] CC: Ashley Cid DATE OF SERVICE: 04/28/2020 CHIEF COMPLAINT: Low back pain, left lower extremity pain with paresthesias, right shoulder pain. HISTORY OF PRESENT ILLNESS: As you know, the patient is a very pleasant 64-year-old female who returns today in followup visit to undergo next in the series of lumbar epidural injections. She is now experiencing pain greater on the left than the right, but continues to experience bilateral symptoms that have been very consistent. She does very well with previous epidural injections with previous injection giving up to 70% improvement in overall pain to 80% improvement in overall pain lasting for almost 7 weeks. She returns today in followup visit for the next in the series of epidural injections. She also is complaining of right shoulder pain. She has undergone intra-articular injections in the past at her orthopedic surgeon's office with good efficacy. She denies specific injury or trauma to that shoulder. She wishes to discuss treatment for that as well today. ALLERGIES: CODEINE, AMOXICILLIN, AND VANCOMYCIN. CURRENT MEDICATIONS: Famotidine 40 mg once a day, lisinopril 10 mg once a day, multivitamin 1 tab per day, calcium carbonate 1 tab per day, vitamin D 25 mcg per day, oxycodone IR 10 mg every 12 hours p.r.n. for pain, methadone 20 mg twice a day, levothyroxine 125 mcg per day. SOCIAL HISTORY: The patient denies tobacco, alcohol, IV or illicit drug use. She is unaccompanied at today's visit. PQRS: The patient has known arthritic changes of bilateral shoulders, lumbar spine, bilateral hips and knees. No rheumatoid arthritis. She is placing current pain score at 6-7/10. She is not a fall risk nor has she had a fall in the last 3 months. She is not treated with anticoagulant, but is treated for hypertension. She is on chronic opioids with low opiate addiction potential. Pain impact today 35/70, equaling moderate interference of daily activities secondary to pain. PHYSICAL EXAMINATION: VITAL SIGNS: Blood pressure 134/85, pulse is 67, respiratory rate 18 and unlabored. The patient is 98% on room air. Height 5 feet 3 inches tall, weight 144.8 pounds and BMI calculated 25.7. GENERAL: Well-developed, well-nourished, well-hydrated 64-year-old female, appearing stated age, pain is rated today anywhere from 6-7/10. HEENT: Normocephalic, atraumatic. Pupils equal, round and reactive. NEUROLOGIC: Speech fluent. The patient deemed an excellent historian. EXTREMITIES: Show no clubbing, no cyanosis. No appreciable edema. MUSCULOSKELETAL: Lower extremity strength is equal and symmetrical 5/5. Muscle bulk and tone is equal and symmetrical in comparing lower extremities. Seated straight leg raising is negative. Supine straight leg raising positive. Reginaldo's test is negative. Modified Gaenslen's positive for axial low back pain. Active and passive range of motion of the right shoulder is met with increasing pain. There is crepitus noted with movement. Apprehension test is negative. Liftoff test is mildly positive. ASSESSMENT: 1. Symptomatic lumbar radiculopathy. 2. Lumbosacral spondylosis with radiculopathy. 3. Displacement of lumbar intervertebral disk with radiculopathy. 4. Facet arthropathy of the lumbar spine. 5. Right shoulder pain. 6. Right shoulder osteoarthritis. 7. Chronic intractable pain. PLAN: 1. The patient returns today in followup visit requesting to undergo lumbar epidural injection under fluoroscopic guidance. She has done very well with previous epidural injections, most recent giving nearly 80% improvement in overall pain lasting for 7 weeks. She returns today in followup visit, denying injury or trauma requesting next in the series of epidural injections. She has had a slow and progressive return of symptoms, which is fairly typical for the patient. She does continue to see good efficacy with these injections and wishes to continue therapy. She has been advised risks and benefits of the procedure, states understood and wished to proceed. 2. The patient is complaining of increasing right shoulder pain. She does have some crepitus with movement, indicating some underlying osteoarthritic changes. She has a mildly positive liftoff test concerning of rotator cuff injury as well. She has not had formalized treatment for this except for in the past where she underwent intra-articular shoulder injection with some good effect. We discussed today the treatment options for right shoulder pain. We discussed the following with the patient in regards to treatment she can do at home versus interventional therapies. We discussed physical therapy, stretching exercises and mobility techniques done in a formalized physical therapy fashion. We discussed topical agents such as diclofenac gel or Pennsaid, which could be applied to the shoulder itself. Diclofenac is now generic [id number] and she can obtain this at a local pharmacy. We would recommend initiating with a topical agent. We discussed medication management, adding an oral nonsteroidal anti-inflammatories as a treatment course. We also discussed intra-articular shoulder injections and surgical evaluation. After reviewing risks and benefits of all proposed treatment options, the patient chose to begin with diclofenac gel [id number] solution and to schedule in 2 weeks a right shoulder injection if her symptoms do not improve as she is having difficulty going about daily activities and sleeping at night due to pain. She denies numbness or tingling with the pain area. 3. The patient will be established an appointment in 2 weeks for a right intra-articular shoulder injection. The patient was advised if she is doing well with the diclofenac gel, she can cancel that appointment. We are hopeful that a conservative treatment will be beneficial, but will be available to see her to undergo this intra-articular shoulder injection. 4. We will see the patient back in followup visit for addressing lumbar radicular symptoms on an as needed basis. She does very well with these shots and we are hopeful that she will continue to do so with today's injection. PROCEDURE NOTE DESCRIPTION OF PROCEDURE: L5-S1 left parasagittal epidural steroid injection under fluoroscopic guidance. After obtaining written consent, the patient was taken back to fluoroscopy suite, placed in prone position with pillow under abdomen to decrease lumbar lordosis. Skin overlying the lumbosacral area then prepped and draped in aseptic fashion. The L5-S1 vertebral interspace was identified by AP fluoroscopy. Skin and subcutaneous tissue overlying the target site of injection anesthetized with 3 mL of 1% lidocaine. A 20-gauge 3-1/2 inch Tuohy needle advanced under fluoroscopic guidance towards the epidural space using a left parasagittal approach. Epidural space identified using loss of resistance to air technique. After negative aspiration for heme or cerebrospinal fluid, 1 mL of on Omnipaque injected. Lumbar epidurogram confirmed using both AP and lateral fluoroscopy. After negative aspiration for heme or cerebrospinal fluid, 5 mL of solution containing 2 mL 40 mg per mL, 80 mg total triamcinolone along with 3 mL of lidocaine 1% injected slowly. Needle retracted intermediate, flushed with 1 mL of 1% lidocaine, then removed. Sterile bandage placed over injection site. No new motor deficits present in lower extremity following procedure. The patient tolerated the procedure well, carefully escorted to recovery room in stable condition. No apparent complications. After meeting discharge criteria, the patient discharged home. By: [id number] Lj Cid DO /nt
[2020-04-28 07:57] VITALS: BP 134/85
--- NOTE | 2020-04-28 08:07 | NUR ---
Pain Clinic Assessment: 1. History of Osteoarthritis: Left Lower Extremity Left Upper Extremity Right Lower Extremity Right Upper Extremity History of Rheumatoid Arthritis: DENIES 2. Height: 5 ft. 3 in. 160.0 cm. Weight: 144.8 lb. oz. 65.681 kg. Patient's BMI: 25.7 3. Vital Signs: BP: 134/85 Pulse: 67 Resp: 18 Temp: 02 Sat: 98 ECG Mon: 4. Pain Intensity: 6-7 5. Fall Risk: Dizziness: N Needs help standing or walking: N Fallen in the last 3 months: N Fall risk comments: 6. Patient on Blood Thinner: None 7. History of Hypertension: Y 8. Opioid Therapy greater than 6 weeks: Y Opiate Contract Signed: 9. Risk Assessment Tool Provided: LOW-0 10. Functional Assessment Tool: 50/70 11. Recreational Drug Use: Never Drug Type: Tobacco Use: Former Smoker Tobacco Type: Amount or Packs/day: How Many Years: Alcohol Use: No Frequency: Quant:
== END | disposition home or self-care (01) ==
LOC: PAIN 06:45
PROVIDERS: ATTEND Anesthesiology Pain Medicine
DX: M51.16 Intervertebral disc disorders with radiculopathy, lumbar region (principal); M47.27 Other spondylosis with radiculopathy, lumbosacral region; M47.26 Other spondylosis with radiculopathy, lumbar region; M25.511 Pain in right shoulder; M19.011 Primary osteoarthritis, right shoulder; I10 Essential (primary) hypertension; M19.90 Unspecified osteoarthritis, unspecified site; Z98.890 Other specified postprocedural states; Z79.899 Other long term (current) drug therapy; Z88.8 Allergy status to other drugs, medicaments and biological substances

== ENCOUNTER → 2020-05-12 | Outpatient (CLI) | payer OTHER ==
[~2020-05-12] VITALS: Ht 160 cm; Wt 65.8 kg
[~2020-05-12] MED LIST changes: +CLARITIN10 MG PO
[2020-05-12 08:17] VITALS: BP 112/65
--- NOTE | 2020-05-12 08:20 | NUR ---
Answering YES to this query will charge for the Pneumococcal Vaccine. Please answer YES ONLY if administering vaccine at this time.
--- NOTE | 2020-05-12 08:23 | NUR ---
Answering YES to this query will charge for the Pneumococcal Vaccine. Please answer YES ONLY if administering vaccine at this time.
--- NOTE | 2020-05-12 08:24 | NUR ---
Pain Clinic Assessment: 1. History of Osteoarthritis: Left Lower Extremity Left Upper Extremity Right Lower Extremity Right Upper Extremity History of Rheumatoid Arthritis: DENIES 2. Height: 5 ft. 3 in. 160.0 cm. Weight: 145.0 lb. oz. 65.772 kg. Patient's BMI: 25.7 3. Vital Signs: BP: 112/65 Pulse: 80 Resp: 16 Temp: 02 Sat: 96 ECG Mon: 4. Pain Intensity: 5 5. Fall Risk: Dizziness: N Needs help standing or walking: N Fallen in the last 3 months: N Fall risk comments: 6. Patient on Blood Thinner: None 7. History of Hypertension: Y 8. Opioid Therapy greater than 6 weeks: Y Opiate Contract Signed: 9. Risk Assessment Tool Provided: LOW-0 10. Functional Assessment Tool: 50/70 11. Recreational Drug Use: Never Drug Type: Tobacco Use: Former Smoker Tobacco Type: Amount or Packs/day: How Many Years: Alcohol Use: No Frequency: Quant:
--- NOTE | 2020-05-12 10:45 | HPC ---
[address] [address] PAIN MANAGEMENT CONSULTATION Name: KELSEY FOWLER Room #: REG MIKEL Jones.#: [id number] Admission: 05/12/20 Attend Phys: Lj Cid DO Discharge: Date of : 51 Report #: [id number] CC: Ashley Cid DATE OF SERVICE: 05/12/2020 REFERRING PHYSICIAN: Ashley Cerna MD CHIEF COMPLAINT: Right shoulder pain. HISTORY OF PRESENT ILLNESS: As you know, the patient is a very pleasant 64-year-old female who has returned today in followup visit to undergo right intra-articular shoulder injection under fluoroscopic guidance. The patient reports that she injured her shoulder while working on setting up the horse saddles and rigging. She states she has been favoring that right shoulder since that time, but continues to experience pain in the right shoulder with rotation and trying to lift objects. She returns today for a right intra-articular shoulder injection in hopes of improving her shoulder pain. Imaging was obtained, which shows mild arthritic changes, there is concern there might be a rotator cuff injury and she was recommended to trial an injection. She returns today in followup visit with pain score of about 5/10, describing the pain as constant, dull, sharp, burning, aching when describing symptoms. ALLERGIES: CODEINE, AMOXICILLIN AND VANCOMYCIN. CURRENT MEDICATIONS: Famotidine, lisinopril, multivitamins, calcium carbonate, vitamin D, oxycodone, methadone and levothyroxine. SOCIAL HISTORY: The patient denies tobacco, alcohol, IV or illicit drug use. She is unaccompanied today. PQRS: The patient has arthritic changes of bilateral shoulders, right greater than left, osteoarthritis in lumbar spine, bilateral hips and knees, no rheumatoid arthritis. She is placing pain intensity today around 5/10. She is not a fall risk nor has she had a fall in last 3 months. She is treated with anticoagulants, but has discontinued the medication in preparation for today's injection. She is treated for hypertension. She is on chronic opioids with a low opioid addiction potential. Pain impact today is rated at a level of 50/70, severe interference of daily activities secondary to pain. PHYSICAL EXAMINATION: VITAL SIGNS: Blood pressure 112/65, pulse 80, respiratory rate 16 and unlabored. The patient is 96% on room air. Height 5 feet 3 inches tall, weight 145 pounds, BMI calculated 25.7. GENERAL: Well-developed, well-nourished, well-hydrated 64-year-old female, appearing stated age, pain is rated today 5/10. HEENT: Normocephalic, atraumatic. Pupils equal, round and reactive. Speech is fluent. EXTREMITIES: Show no clubbing, no cyanosis, no edema. MUSCULOSKELETAL: There is some palpatory tenderness over the paraspinal musculature of the right shoulder. Active and passive range of motion of right shoulder is met with increasing pain. There is mild crepitus noted with movement. Apprehension test negative, liftoff test is mildly positive. ASSESSMENT: 1. Right shoulder pain. 2. Right shoulder osteoarthritis. 3. Possible right rotator cuff injury. 4. Chronic intractable pain. PLAN: 1. The patient has returned today in followup visit to undergo right intra-articular shoulder injection under fluoroscopic guidance. The patient injured her shoulder while tightening some of the horse saddling, preparing to ride and has been bothering the patient ever since. She returns today per the request of her primary care physician to undergo right intra-articular shoulder injection in hopes of improving pain. The patient reports that she has been utilizing kinetic tape, which has been somewhat beneficial, but is hopeful that the combination of kinetic tape along with an intra-articular injection will improve her shoulder pain, so she can return to activities of daily living. She has been advised of risks and benefits of the procedure, states understood and wished to proceed. 2. No medication changes made at today's visit. The patient will continue current medical therapy as prior prescribed. 3. We plan to see the patient back in followup visit on an as needed basis to address either her lumbar radiculopathy or her right shoulder pain. We are hopeful the patient will see prolonged benefit with today's procedure. PROCEDURE NOTE DESCRIPTION OF PROCEDURE: Right intra-articular shoulder injection under fluoroscopic guidance. After obtaining written consent, the patient was taken back to fluoroscopy suite, placed in a supine position. The image intensifier was then brought into position over the right shoulder and AP imaging was obtained. The area of the injection site was then prepped with chlorhexidine and marked with a sterile marker. A 27-gauge 1-1/4 inch needle was then used to anesthetize skin and subcutaneous tissue with 1 mL of preservative-free 1% lidocaine. A 27-gauge 1-1/4-inch needle was then advanced under fluoroscopic guidance towards the proximal head of the humerus. Needle was advanced until reaching the proximal head, then retracted approximately 1 mm. After negative aspiration for heme, 0.5 mL of Omnipaque injected. An excellent right shoulder arthrogram was obtained. After negative aspiration for heme, 3 mL of a solution containing 1 mL 40 mg per mL, 40 mg total triamcinolone along with 2 mL of bupivacaine 0.5% injected slowly. Needle retracted chcf, flushed with 1 mL of 1% lidocaine and then removed. Sterile bandage placed over injection site. No new motor deficits present in the upper extremities following procedure. The patient tolerated procedure well, carefully escorted to recovery room in stable condition. No apparent complications. After meeting discharge criteria, the patient discharged home. <ELECTRONICALLY SIGNED> By: Lj Cid DO 05/12/20 1045 [id number] Lj Cid DO /nt
== END | disposition home or self-care (01) ==
LOC: PAIN 06:50
PROVIDERS: ATTEND Anesthesiology Pain Medicine
DX: M25.511 Pain in right shoulder (principal); M19.011 Primary osteoarthritis, right shoulder; G89.29 Other chronic pain; I10 Essential (primary) hypertension; M19.90 Unspecified osteoarthritis, unspecified site; Z98.890 Other specified postprocedural states; Z79.899 Other long term (current) drug therapy; Z87.891 Personal history of nicotine dependence

== ENCOUNTER → 2020-06-30 | Outpatient (CLI) | payer OTHER ==
[~2020-06-30] VITALS: Ht 160 cm; Wt 68.4 kg
[~2020-06-30] MED LIST changes: -VITAMIN D IV; +VITAMIN D250 MC1 PO
[2020-06-30 08:18] VITALS: BP 122/78
--- NOTE | 2020-06-30 08:43 | NUR ---
Pain Clinic Assessment: 1. History of Osteoarthritis: Left Lower Extremity Left Upper Extremity Right Lower Extremity Right Upper Extremity History of Rheumatoid Arthritis: DENIES 2. Height: 5 ft. 3 in. 160.0 cm. Weight: 150.8 lb. oz. 68.402 kg. Patient's BMI: 26.7 3. Vital Signs: BP: 122/78 Pulse: 80 Resp: 14 Temp: 02 Sat: 100 ECG Mon: 4. Pain Intensity: 7 5. Fall Risk: Dizziness: N Needs help standing or walking: N Fallen in the last 3 months: N Fall risk comments: 6. Patient on Blood Thinner: None 7. History of Hypertension: Y 8. Opioid Therapy greater than 6 weeks: Y Opiate Contract Signed: 9. Risk Assessment Tool Provided: LOW-0 10. Functional Assessment Tool: 50/70 11. Recreational Drug Use: Never Drug Type: Tobacco Use: Former Smoker Tobacco Type: Amount or Packs/day: How Many Years: Alcohol Use: No Frequency: Quant:
--- NOTE | 2020-07-01 11:20 | HPC ---
[facility] [address] [place] [address] PAIN MANAGEMENT CONSULTATION Name: KELSEY FOWLER Room #: REG MIKEL Jones.#: [id number] Admission: 06/30/20 Attend Phys: Lj Cid DO Discharge: Date of : 51 Report #: [id number] THIS REPORT FOR: cc: Ashley Cerna MD, Cora A. MD Johnson, James E. DO ~ DATE OF SERVICE: 06/30/2020 REFERRING PHYSICIAN: Ashley Cerna MD CHIEF COMPLAINT: Low back pain, bilateral lower extremity pain with paresthesias. HISTORY OF PRESENT ILLNESS: As you know, the patient is a very pleasant 64-year-old female who returns today in followup visit with recurrent low back pain, bilateral lower extremity pain with paresthesias. The patient is placing her current pain score around 7/10. She indicates no injury or trauma that may have led to symptom reoccurrence. As you are aware, the patient suffers from lumbar radiculopathy that has progressively worsened. Her symptoms are related to a combination of facet arthropathy and displacement of lumbar intervertebral disk, leading to her symptoms. She has completed epidural injections in the past with good efficacy. She returns today in followup visit to undergo next in the series in hopes of improving pain. She denies injury or trauma that may have led to symptom reoccurrence. She has had no changes in medical management they were preclude us from providing injection today. ALLERGIES: CODEINE, AMOXICILLIN, AND VANCOMYCIN. CURRENT MEDICATIONS: Famotidine, lisinopril, multivitamins, calcium carbonate, vitamin D, oxycodone, methadone, and levothyroxine. SOCIAL HISTORY: The patient denies tobacco, alcohol, IV or illicit drug use. She is unaccompanied at today's visit. PQRS: The patient has known arthritic changes of bilateral shoulders, right greater than left, osteoarthritis of the lumbar spine, bilateral hips and knees. No rheumatoid arthritis. She is placing current pain score 7/10. She is not a fall risk, has not had a fall in last 3 months. She is not on blood thinners, but is treated for hypertension. She is on chronic opioids and has a low opioid addiction potential. Pain impact today 50/70, severe interference of daily activities secondary to pain. PHYSICAL EXAMINATION: VITAL SIGNS: Blood pressure 122/78, pulse 80, respiratory rate 14 and unlabored. The patient is 100% on room air. Height 5 feet 3 inches tall, weight 150.8 pounds, BMI calculated 26.7[place] [address] PAIN MANAGEMENT CONSULTATION Name: KELSEY FOWLER Room #: REG [facility]#: [id number] Admission: 06/30/20 Attend Phys: Lj Cid DO Discharge: Date of : 53 Report #: [id number] GENERAL: Well-developed, well-nourished, well-hydrated 64-year-old female appearing stated age, placing current pain score 7/10. HEENT: Normocephalic and atraumatic. Pupils equal, round and reactive. Speech fluent. EXTREMITIES: Show no clubbing, no cyanosis. No appreciable edema. MUSCULOSKELETAL: The patient's gait appears to be normal. Stance is normal. Lumbar provocation testing is met with slight increase in axial back pain mainly with rotation and lateral flexion. There is mild restriction of motion. Seated straight leg raising negative. Supine straight leg raising positive. Reginaldo's test negative. ASSESSMENT: 1. Symptomatic lumbar radiculopathy. 2. Lumbosacral spondylosis with radiculopathy. 3. Facet arthropathy of the lumbar spine. 4. Displacement of lumbar intervertebral disk with radiculopathy. 5. Chronic right shoulder pain. 6. Chronic right shoulder osteoarthritis. 7. Chronic intractable pain. PLAN: 1. The patient returns today in followup visit with recurrence of low back pain, bilateral lower extremity pain with paresthesias. She had done very well with previous epidural injection to address lumbar radiculopathy reporting about 80% improvement in overall pain lasting until just recently where she has had a slow and progressive return of symptoms. She returns today in followup visit to address lumbar radicular pain. She indicates pain level today at 7/10. She denies injury or trauma that may have led to symptom reoccurrence. She has had no changes in medical history or management from a medical standpoint that would preclude the patient from undergoing an epidural injection today. She has been advised risks and benefits of the procedure, states understood and wished to proceed. 2. No medication changes made at today's visit. The patient will continue current medical therapy as prior prescribed. 3. We plan to see the patient back in followup visit on an as needed basis for possible next in the series of lumbar epidural injections under fluoroscopic guidance. I am pleased to see the patient did well with the right shoulder injection and we will be available to see her back if she wishes to undergo the next in the series of that injections as well. DESCRIPTION OF PROCEDURE: L5-S1 interlaminar epidural steroid injection under fluoroscopic guidance. After obtaining written consent, the patient was taken back to fluoroscopy suite, placed in prone position with pillow under abdomen to decrease lumbar lordosis. Skin overlying lumbosacral area then prepped and draped in aseptic [address] [address] PAIN MANAGEMENT CONSULTATION Name: KELSEY FOWLER Room #: REG [facility]#: [id number] Admission: 06/30/20 Attend Phys: Lj Cid DO Discharge: Date of : 51 Report #: [id number] fashion. The L5-S1 vertebral interspace identified by AP fluoroscopy. Skin and subcutaneous tissue overlying target site injection anesthetized with 3 mL of 1% lidocaine. A 20-gauge 3-1/2 inch Tuohy needle advanced under fluoroscopic guidance towards the epidural space using a parasagittal approach. Epidural space identified using loss of resistance to air technique. After negative aspiration for heme or cerebrospinal fluid, 1 mL of Omnipaque injected. Lumbar epidurogram was confirmed using both AP and lateral fluoroscopy. After negative aspiration for heme or cerebrospinal fluid, 5 mL of solution containing 2 mL 40 mg per mL, 80 mg total triamcinolone along with 3 mL of lidocaine 1% injected slowly. Needle retracted fci, flushed with 1 mL of 1% lidocaine and then removed. Sterile bandage placed over injection site. No new motor deficits present in the lower extremities following procedure. The patient tolerated the procedure well, carefully escorted to recovery room in stable condition. No apparent complications. After meeting discharge criteria, the patient discharged home. <ELECTRONICALLY SIGNED> By: Lj Cid DO 07/01/20 1120 1000 1202 Lj Cid DO /nt
== END | disposition home or self-care (01) ==
LOC: PAIN 06:45
PROVIDERS: ATTEND Anesthesiology Pain Medicine
DX: M51.16 Intervertebral disc disorders with radiculopathy, lumbar region (principal); M47.27 Other spondylosis with radiculopathy, lumbosacral region; M47.26 Other spondylosis with radiculopathy, lumbar region; M25.511 Pain in right shoulder; M19.011 Primary osteoarthritis, right shoulder; G89.29 Other chronic pain; I10 Essential (primary) hypertension; M19.90 Unspecified osteoarthritis, unspecified site; Z98.890 Other specified postprocedural states; Z79.899 Other long term (current) drug therapy; Z87.891 Personal history of nicotine dependence

== ENCOUNTER → 2020-08-25 | Outpatient (CLI) | payer OTHER ==
[~2020-08-25] VITALS: Ht 160 cm; Wt 67.6 kg
[2020-08-25 10:00] VITALS: BP 104/69
--- NOTE | 2020-08-25 10:06 | NUR ---
Pain Clinic Assessment: 1. History of Osteoarthritis: Left Lower Extremity Left Upper Extremity Right Lower Extremity Right Upper Extremity History of Rheumatoid Arthritis: DENIES 2. Height: 5 ft. 3 in. 160.0 cm. Weight: 149.0 lb. oz. 67.586 kg. Patient's BMI: 26.4 3. Vital Signs: BP: 104/69 Pulse: 85 Resp: 14 Temp: 02 Sat: 100 ECG Mon: 4. Pain Intensity: 8 5. Fall Risk: Dizziness: N Needs help standing or walking: N Fallen in the last 3 months: N Fall risk comments: 6. Patient on Blood Thinner: None 7. History of Hypertension: Y 8. Opioid Therapy greater than 6 weeks: Y Opiate Contract Signed: 9. Risk Assessment Tool Provided: LOW-0 10. Functional Assessment Tool: 50/70 11. Recreational Drug Use: Never Drug Type: Tobacco Use: Former Smoker Tobacco Type: Amount or Packs/day: How Many Years: Alcohol Use: No Frequency: Quant:
--- NOTE | 2020-08-26 11:27 | HPC ---
[facility] [place] [address] PAIN MANAGEMENT CONSULTATION Name: KELSEY FOWLER Room #: REG MIKEL [facility].#: [id number] Admission: 08/25/20 Attend Phys: Lj Cid DO Discharge: Date of : 51 Report #: [id number] THIS REPORT FOR: cc: Ashley Cerna MD, Cora A. MD Johnson, James E. DO ~ DATE OF SERVICE: 08/25/2020 CHIEF COMPLAINT: Low back pain, bilateral lower extremity pain with paresthesias, left greater than right. HISTORY OF PRESENT ILLNESS: As you know, the patient is a very pleasant 64-year-old female who has returned today in followup visit with recurrent lumbar radicular symptoms. She states pain begins in low back, radiates down both legs, left greater than right. She is placing current pain score 8/10. She states previous epidural injection provided at our visit of 06/30/2020 gave 90% improvement in overall pain. Unfortunately, her symptoms have begun to return. She denies injury or trauma. She returns today requesting next in the series of epidural injections under fluoroscopic guidance to address recurrent lumbar radicular symptoms. ALLERGIES: CODEINE, AMOXICILLIN, AND VANCOMYCIN. CURRENT MEDICATIONS: See chart. SOCIAL HISTORY: The patient denies tobacco, alcohol, IV or illicit drug use. She is unaccompanied at today's visit. PQRS: The patient has known arthritic changes of the bilateral shoulders, right greater than left, osteoarthritis of the lumbar spine, bilateral hips and knees. No rheumatoid arthritis. She is placing current pain intensity at 8/10. She is not a fall risk, has not had a fall in last 3 months. She is not on blood thinners, but is treated for hypertension. She is on chronic opioids, has a low opiate addiction potential. Pain impact is 50/70, severe interference of daily activities secondary to pain. PHYSICAL EXAMINATION: VITAL SIGNS: Blood pressure 104/69, pulse is 85, respiratory rate 14 and unlabored. The patient is 100% on room air. Height 5 feet 3 inches tall, weight 149 pounds, BMI calculated 26.4. GENERAL: Well-developed, well-nourished, well-hydrated 64-year-old female, appearing stated age, placing current pain score at 8/10. HEENT: Normocephalic, atraumatic. Pupils equal, round and reactive. Speech is fluent. EXTREMITIES: Show no clubbing, no cyanosis. No appreciable edema. MUSCULOSKELETAL: The patient has a positive seated [place] [address] PAIN MANAGEMENT CONSULTATION Name: KELSEY FOWLERLINE Room #: REG [facility].#: [id number] Admission: 08/25/20 Attend Phys: Lj Cid DO Discharge: Date of : 51 Report #: [id number] Supine straight leg raising positive on the left. Reginaldo's test is negative. Modified Gaenslen's positive for axial low back pain. Gait mildly antalgic. ASSESSMENT: 1. Symptomatic lumbar radiculopathy. 2. Lumbosacral spondylosis with radiculopathy. 3. Facet arthropathy of the lumbar spine. 4. Displacement of lumbar intervertebral disk with radiculopathy. 5. Chronic right shoulder pain. 6. Rotator cuff injury of the right shoulder. PLAN: 1. The patient returns today in followup visit requesting to undergo lumbar epidural injection under fluoroscopic guidance. She feels that the epidural injections have been quite beneficial for pain control. She is denying any new injury or trauma that may have led to symptom reoccurrence. She states her pain is located in the similar distribution and it has returned to its typical level of acuity with a pain level of 8/10. She has requested and we will perform next in the series of epidural injections given the fact that she is seeing excellent benefit with each procedure. She has been advised risks and benefits of procedure, states understood and wished to proceed. 2. The patient and I discussed her impending surgery to address her right shoulder issues. She has been advised by Orthopedics that she has a rotator cuff tear, will need repair. She is seeking a second opinion, but has yet to see that individual. She is planning to undergo surgery to address this issue. She will keep us apprised of the timing of that surgery, so that we can adjust our medication dosing and our epidural injections if that surgery is forthcoming. 3. We will see the patient back in followup visit for next in the series of epidural injections. We wish her well with the impending right shoulder surgery. She will keep us apprised of the date of that surgery. DESCRIPTION OF PROCEDURE: Left L5-S1 paramedian epidural steroid injection under fluoroscopic guidance. After obtaining written consent, the patient was taken back to fluoroscopy suite, placed in prone position with pillow under abdomen to decrease lumbar lordosis. Skin overlying lumbosacral area then prepped and draped in aseptic fashion. L5-S1 vertebral interspace identified by AP fluoroscopy. Skin and subcutaneous tissue overlying target site injection anesthetized with 3 mL of 1% lidocaine. A 20-gauge 3-1/2 inch Tuohy needle advanced under fluoroscopic guidance towards the epidural space using a left paramedian approach. Epidural space identified using loss of resistance to air technique. After negative aspiration for heme or cerebrospinal fluid, 1 mL of Omnipaque injected. Lumbar epidurogram was [facility] [address] [place] [address] PAIN MANAGEMENT CONSULTATION Name: KELSEY FOWLER MARY Room #: REG [facility].#: [id number] Admission: 08/25/20 Attend Phys: Lj Cid DO Discharge: Date of : 51 Report #: [id number] confirmed using both AP and lateral fluoroscopy. After negative aspiration for heme or cerebrospinal fluid, 5 mL of a solution containing 2 mL 40 mg per mL, 80 mg total triamcinolone along with 3 mL of lidocaine 1% injected slowly. Needle retracted [facility], flushed with 1 mL of 1% lidocaine, then removed. Sterile bandage placed over injection site. No new motor deficits present in the lower extremities following procedure. The patient tolerated procedure well, carefully escorted to recovery room in stable condition. No apparent complications. After meeting discharge criteria, the patient discharged home. <ELECTRONICALLY SIGNED> By: Lj Cid DO 08/26/20 1127 1233 1252 Lj Cid DO /nt
== END | disposition home or self-care (01) ==
LOC: PAIN 06:53
PROVIDERS: ATTEND Anesthesiology Pain Medicine
DX: M51.16 Intervertebral disc disorders with radiculopathy, lumbar region (principal); M47.27 Other spondylosis with radiculopathy, lumbosacral region; M47.26 Other spondylosis with radiculopathy, lumbar region; M25.511 Pain in right shoulder; G89.29 Other chronic pain; I10 Essential (primary) hypertension; M19.90 Unspecified osteoarthritis, unspecified site; Z98.890 Other specified postprocedural states; Z79.899 Other long term (current) drug therapy; Z88.8 Allergy status to other drugs, medicaments and biological substances

== ENCOUNTER → 2020-09-07 | Outpatient (CLI) | payer OTHER | LOC: SJCVCIMAG 09:56 → SJCVC 09:56 | PROVIDERS: ATTEND Internal Medicine Cardiovascular Disease | DX: I34.0 Nonrheumatic mitral (valve) insufficiency (principal); R94.31 Abnormal electrocardiogram [ECG] [EKG]; R00.0 Tachycardia, unspecified; I10 Essential (primary) hypertension; E78.00 Pure hypercholesterolemia, unspecified; M19.90 Unspecified osteoarthritis, unspecified site; K21.9 Gastro-esophageal reflux disease without esophagitis; E78.5 Hyperlipidemia, unspecified; Z88.0 Allergy status to penicillin; Z88.8 Allergy status to other drugs, medicaments and biological substances; Z79.899 Other long term (current) drug therapy ==

== ENCOUNTER → 2020-10-27 | Outpatient (CLI) | payer OTHER ==
[~2020-10-27] VITALS: Ht 160 cm; Wt 71.1 kg
[2020-10-27 09:22] VITALS: BP 116/78
--- NOTE | 2020-10-27 09:30 | NUR ---
Pain Clinic Assessment: 1. History of Osteoarthritis: Left Lower Extremity Left Upper Extremity Right Lower Extremity Right Upper Extremity History of Rheumatoid Arthritis: DENIES 2. Height: 5 ft. 3 in. 160.0 cm. Weight: 156.8 lb. oz. 71.124 kg. Patient's BMI: 27.8 3. Vital Signs: BP: 116/78 Pulse: 73 Resp: 16 Temp: 02 Sat: 98 ECG Mon: 4. Pain Intensity: 6 5. Fall Risk: Dizziness: N Needs help standing or walking: N Fallen in the last 3 months: N Fall risk comments: 6. Patient on Blood Thinner: None 7. History of Hypertension: Y 8. Opioid Therapy greater than 6 weeks: Y Opiate Contract Signed: 9. Risk Assessment Tool Provided: LOW-0 10. Functional Assessment Tool: 50/70 11. Recreational Drug Use: Never Drug Type: Tobacco Use: Former Smoker Tobacco Type: Amount or Packs/day: How Many Years: Alcohol Use: No Frequency: Quant:
--- NOTE | 2020-10-28 07:42 | HPC ---
[facility] [place] [address] PAIN MANAGEMENT CONSULTATION Name: KELSEY FOWLER Room #: REG MIKEL Jones.#: [id number] Admission: 10/27/20 Attend Phys: Lj Cid DO Discharge: Date of : 51 Report #: [id number] THIS REPORT FOR: cc: Ashley Cerna MD, Cora A. MD Johnson, James E. DO ~ DATE OF SERVICE: 10/27/2020 REFERRING PHYSICIAN: Ashley Cerna MD CHIEF COMPLAINT: Low back pain, bilateral lower extremity pain with paresthesias. HISTORY OF PRESENT ILLNESS: As you know, the patient is a very pleasant 65-year-old female who returns today in followup visit requesting to undergo next in the series of lumbar epidural injections. The patient states over the past 2 weeks, her pain has begun to intensify. She is now placing pain score 6/10. She reports previous epidural injection gave 80% improvement in overall pain, lasting for nearly 6-1/2 weeks, but unfortunately symptoms have reoccurred. She denies injury or trauma that may have led to symptom development. She indicates pain begins in low back, radiates down both legs equally. She returns requesting a lumbar epidural injection under fluoroscopic guidance. ALLERGIES: CODEINE, AMOXICILLIN, AND VANCOMYCIN. CURRENT MEDICATIONS: Loratadine 10 mg once a day, famotidine 40 mg per day, lisinopril 10 mg per day, multivitamin 1 tab per day, calcium carbonate 1 tab per day, vitamin D2 50 mcg per day, oxycodone 10/325 one tab p.o. q.12 hours p.r.n. for pain, methadone 10 mg b.i.d., levothyroxine 125 mcg per day. SOCIAL HISTORY: The patient denies tobacco, alcohol, IV or illicit drug use. She is retired, unaccompanied today. IMAGING: No new imaging available. PQRS: The patient has known arthritic changes of the lumbar spine, bilateral lower extremities and bilateral upper extremities including the bilateral hips, bilateral knees and mildly to the ankles, bilateral shoulders and hands. She denies rheumatoid arthritis. She is placing pain intensity a 6/10. She is not a fall risk, has not had a fall in last 3 months. She is not on blood thinners, but is treated for hypertension. She is on chronic opioids, has a low opioid addiction potential based on our assessment tool. Pain impact is 50/70, severe interference of daily activities secondary to pain. PHYSICAL EXAMINATION: [facility] [address] [place] [address] PAIN MANAGEMENT CONSULTATION Name: KELSEY FOWLER Room #: REG [facility].#: [id number] Admission: 10/27/20 Attend Phys: Lj Cid DO Discharge: Date of : 51 Report #: [id number] VITAL SIGNS: Blood pressure 116/78, pulse 73, respiratory rate 16 and unlabored. The patient 98% on room air. Height 5 feet 3 inches tall, weight 156.8 pounds, BMI calculated 27.8. GENERAL: Well-developed, well-nourished, well-hydrated 65-year-old female appearing stated age, placing current pain score at 6/10. HEENT: Normocephalic, atraumatic. Pupils equal, round, and responsive. The patient is wearing a mask in compliance with COVID-19 regulations. EXTREMITIES: Show no clubbing, no cyanosis, and no appreciable edema. MUSCULOSKELETAL: Lower extremity strength equal and symmetrical 5/5, intact to light touch from L1 through S2 dermatomes. Seated straight leg raising negative. Supine straight leg raising positive. Reginaldo's test is negative. Modified Gaenslen's positive for axial low back pain. Ankle clonus negative. Babinski is negative. Gait appears mildly antalgic favoring right lower extremity. ASSESSMENT: 1. Symptomatic lumbar radiculopathy. 2. Lumbosacral spondylosis with radiculopathy. 3. Displacement of lumbar intervertebral disk with radiculopathy. 4. Facet arthropathy of the lumbar spine. 5. Chronic intractable pain. PLAN: 1. The patient returns today in followup visit to undergo next in the series of lumbar epidural injections under fluoroscopic guidance. The patient reports excellent benefit with previous epidural injection, near 80% improvement in overall pain lasting for 6-1/2 weeks. Unfortunately, her symptoms have begun to return. She returns today in followup visit stating the last week to two weeks has been progressively worsening and she returns for the next in the series of epidural injections. She denies injury or trauma that may have led to symptom reoccurrence. She states she was doing well when all of a sudden her symptoms began to return. The patient has been advised risks and benefits of a lumbar epidural injection. These risks include, but are not necessarily limited to bleeding, bruising, infection, worsening pain, no relief of pain, also risk of temporary or permanent muscle weakness, temporary or permanent nerve damage, possible paralysis and . The patient states understood and wished to proceed. 2. No medication changes made at today's visit. The patient will continue current medical therapy as prior prescribed. 3. We plan to see the patient back in followup visit on an as needed basis for possible next in the series of lumbar epidural injections. We are hopeful the patient will continue to see improvement with epidural injections as we have seen in the past. We will see her back on an as needed basis. PROCEDURE NOTE [facility] [address] [place] [address] PAIN MANAGEMENT CONSULTATION Name: KELSEY FOWLER MARY Room #: REG MIKEL [facility]#: [id number] Admission: 10/27/20 Attend Phys: Lj Cid DO Discharge: Date of : 51 Report #: [id number] PROCEDURE: L5-S1 parasagittal epidural steroid injection under fluoroscopic guidance. DESCRIPTION OF PROCEDURE: After obtaining written consent, the patient was taken back to fluoroscopy suite, placed in prone position with pillow under abdomen to decrease lumbar lordosis. Skin overlying lumbosacral area then prepped and draped in aseptic fashion. The L5-S1 vertebral interspace identified by AP fluoroscopy. Skin and subcutaneous tissue overlying target site injection anesthetized with 3 mL of 1% lidocaine. A 20-gauge 3-1/2 inch Tuohy needle advanced under fluoroscopic guidance towards the epidural space using a parasagittal approach. Epidural space identified using loss of resistance to air technique. After negative aspiration for heme or cerebrospinal fluid, 1 mL of Omnipaque injected. Lumbar epidurogram confirmed using both AP and lateral fluoroscopy. After negative aspiration for heme or cerebrospinal fluid, 5 mL of a solution containing 2 mL 40 mg per mL, 80 mg total triamcinolone along with 3 mL of lidocaine 1% injected slowly. Needle retracted detention, flushed with 1 mL of 1% lidocaine, then removed. Sterile bandage placed over injection site. No new motor deficits present in the lower extremities following procedure. The patient tolerated procedure well, carefully escorted to recovery room in stable condition. No apparent complications. After meeting discharge criteria, the patient discharged home. <ELECTRONICALLY SIGNED> By: Lj Cid DO 10/28/20 0742 [id number] Lj Cid DO /nt
== END | disposition home or self-care (01) ==
LOC: PAIN 06:54
PROVIDERS: ATTEND Anesthesiology Pain Medicine
DX: M51.16 Intervertebral disc disorders with radiculopathy, lumbar region (principal); M47.27 Other spondylosis with radiculopathy, lumbosacral region; M47.26 Other spondylosis with radiculopathy, lumbar region; G89.29 Other chronic pain; I10 Essential (primary) hypertension; M19.90 Unspecified osteoarthritis, unspecified site; Z98.890 Other specified postprocedural states; Z79.891 Long term (current) use of opiate analgesic; Z79.899 Other long term (current) drug therapy; Z88.8 Allergy status to other drugs, medicaments and biological substances

== ENCOUNTER → 2020-12-29 | Outpatient (CLI) | payer OTHER ==
[~2020-12-29] VITALS: Ht 160 cm; Wt 71.5 kg
--- NOTE | ~2020-12-29 | HPC ---
[facility] [place] [address] PAIN MANAGEMENT CONSULTATION Name: KELSEY FOWLER Room #: REG MIKEL Jones.#: [id number] Admission: 12/29/20 Attend Phys: Lj Cid DO Discharge: Date of : 51 Report #: [id number] THIS REPORT FOR: cc: Ashley Cerna MD,Lj Christie MD, DO ~ DOC #: [id number] cc: MD Lj Obrien DO DATE OF SERVICE: 12/29/2020 REFERRING PHYSICIAN: Ashley Cerna MD CHIEF COMPLAINT: Low back pain, right lower extremity pain with paresthesias, new onset left hip pain. HISTORY OF PRESENT ILLNESS: As you know, the patient is a very pleasant 65-year-old female who has returned today in followup visit reporting a pain score of around 6/10 involving the low back and right lower extremity. She has done very well with previous epidural injections noticing with the most recent 85% improvement in overall pain with a slow and progressive return of symptoms that began about 2 weeks ago. The patient is reporting left hip pain over the past 6 weeks that has progressively worsened. She states she suffered an injury while participating in activities at home. She denies any specific injury or trauma, but noted pain directly after this activity, which has continued. She has not sought evaluation or treatment, has trialed conservative treatment without benefit. She returns to discuss options for treatment to address this left hip issue as well. ALLERGIES: CODEINE, AMOXICILLIN, AND VANCOMYCIN. CURRENT MEDICATIONS: See chart. SOCIAL HISTORY: The patient denies tobacco, alcohol, IV or illicit drug use. She is retired, retired years ago, unaccompanied today. IMAGING: No new imaging available. PQRS: The patient has known arthritic changes of the lumbar spine, bilateral lower extremities including bilateral hips, knees and ankles, but also bilateral upper extremities. She is denying rheumatoid arthritis. She is placing pain intensity today at around 6/10. She is not a fall risk, has not had a fall in last 3 months. She is not on blood thinners nor is she treated for hypertension. She is on chronic opioids, but has a low opioid addiction potential based on our assessment tool. Pain impact is 50/70, severe interference of daily activities secondary to pain. [address] [address] PAIN MANAGEMENT CONSULTATION Name: KELSEY FOWLER MARY Room #: REG MIKEL Eldon#: [id number] Admission: 12/29/20 Attend Phys: Lj Cid DO Discharge: Date of : 51 Report #: [id number] PHYSICAL EXAMINATION: VITAL SIGNS: Blood pressure 126/74, pulse is 68, respiratory rate 14 and unlabored. The patient 100% on room air. Height 5 feet 3 inches tall, weight 157.6 pounds, BMI calculated 27.9. GENERAL: Well-developed, well-nourished, well-hydrated 65-year-old female appearing stated age, pain is rated today at 6/10. HEENT: Normocephalic, atraumatic. Pupils are round and responsive. The patient is wearing a mask in compliance with COVID-19 regulations. EXTREMITIES: Show no clubbing, no cyanosis, no edema. MUSCULOSKELETAL: Lower extremity strength is symmetrical again today 5/5. Muscle bulk and tone equal and symmetrical in comparing lower extremities. Seated straight leg raising remains negative, though there is some pain elicited with movement of the left hip with this maneuver. Supine straight leg raising is positive on the right, negative left, though there again is pain with movement of the left hip with this maneuver. Reginaldo's test is mildly positive on the left, negative right. Modified Gaenslen's positive for axial low back pain. Ankle clonus negative. Gait mildly antalgic today favoring left lower extremity due to left hip pain. ASSESSMENT: 1. Symptomatic lumbar radiculopathy. 2. Lumbosacral spondylosis with radiculopathy. 3. Displacement of lumbar intervertebral disk with radiculopathy. 4. Facet arthropathy of the lumbar spine. 5. New onset left hip pain over 6 weeks, failed conservative treatment. 6. Chronic intractable pain. PLAN: 1. The patient returns today in followup visit to undergo lumbar epidural injection under fluoroscopic guidance. She reports excellent benefit with epidural injections, the most recent giving 85% improvement in overall pain lasting until about 2 weeks ago. Unfortunately, her symptoms have been reoccurring. She is now placing pain at a 6/10 requesting a lumbar epidural injection. We have advised the patient the risks and benefits of this procedure, states understood and wished to proceed. 2. The patient is complaining of acute onset of left hip pain after activities at home about 6 weeks ago. She has trialled conservative treatment, [id number] medications, rest, relaxation and stretching, but this has not improved symptoms. I would recommend x-ray imaging of the left hip to be obtained as quickly as possible. We will review those findings once they are available. If there are noted changes within the joint, we could consider adjustments and conservative treatment, we could consider intra-articular hip injections or even referral to orthopedics. The patient is agreeable with the plan. She will undergo x-ray imaging, AP and lateral of the left hip today. Those results will be available to us tomorrow. [facility] [address] [place] [address] PAIN MANAGEMENT CONSULTATION Name: JANETHKELSEYGREG HERNANDEZ Room #: REG DIONISIOTasha Colón#: [id number] Admission: 12/29/20 Attend Phys: Lj Cid DO Discharge: Date of : 51 Report #: [id number] 3. No medication changes made at today's visit. The patient will continue current medical therapy as prior prescribed. 4. We will see the patient back in followup visit to undergo next in the series of lumbar epidural injections on an as needed basis. If it was determined that the patient would need more aggressive treatment to address the left hip, we may see her back more quickly. PROCEDURE NOTE: DESCRIPTION OF PROCEDURE: L5-S1 right paramedian epidural steroid injection under fluoroscopic guidance. After obtaining written consent, the patient was taken back to fluoroscopy suite, placed in prone position with pillow under abdomen to decrease lumbar lordosis. Skin overlying lumbosacral area prepped and draped in aseptic fashion. The L5-S1 intervertebral space was identified by AP fluoroscopy. Skin and subcutaneous tissue overlying target site injection anesthetized with 3 mL 1% lidocaine. A 20 gauge 3-1/2 inch Tuohy needle advanced under fluoroscopic guidance towards the epidural space using a right paramedian approach. Epidural space was identified using loss of resistance to air technique. After negative aspiration for heme or cerebrospinal fluid, 1 mL of Omnipaque injected. Lumbar epidurogram was confirmed using both AP and lateral fluoroscopy. After negative aspiration for heme or cerebrospinal fluid, 5 mL solution containing 2 mL 40 mg per mL 80 mg total triamcinolone along with 3 mL of lidocaine, 1% injected slowly. Needle retracted nursing home flushed with 1 mL of 1% lidocaine and then removed. Sterile bandage placed over injection site. No new motor deficits present in the lower extremities, following procedure. The patient tolerated the procedure well, carefully escorted to recovery room in stable condition. No apparent complications. After meeting our discharge criteria, the patient was discharged home. DO RODRIGUE Prieto/DIANA By: [id number] Lj Cid DO /nt
[2020-12-29 08:54] VITALS: BP 126/74
--- NOTE | 2020-12-29 09:19 | NUR ---
Pain Clinic Assessment: 1. History of Osteoarthritis: Left Lower Extremity Left Upper Extremity Right Lower Extremity Right Upper Extremity History of Rheumatoid Arthritis: DENIES 2. Height: 5 ft. 3 in. 160.0 cm. Weight: 157.6 lb. oz. 71.487 kg. Patient's BMI: 27.9 3. Vital Signs: BP: 126/74 Pulse: 68 Resp: 14 Temp: 02 Sat: 100 ECG Mon: 4. Pain Intensity: 6 5. Fall Risk: Dizziness: N Needs help standing or walking: N Fallen in the last 3 months: N Fall risk comments: 6. Patient on Blood Thinner: None 7. History of Hypertension: Y 8. Opioid Therapy greater than 6 weeks: Y Opiate Contract Signed: 9. Risk Assessment Tool Provided: LOW-0 10. Functional Assessment Tool: 50/70 11. Recreational Drug Use: Never Drug Type: Tobacco Use: Former Smoker Tobacco Type: Amount or Packs/day: How Many Years: Alcohol Use: Yes Frequency: Special Occasions Quant: 1
== END | disposition home or self-care (01) ==
LOC: PAIN 06:56
PROVIDERS: ATTEND Anesthesiology Pain Medicine
DX: M51.16 Intervertebral disc disorders with radiculopathy, lumbar region (principal); M47.27 Other spondylosis with radiculopathy, lumbosacral region; M47.26 Other spondylosis with radiculopathy, lumbar region; G89.29 Other chronic pain; M25.552 Pain in left hip; M19.90 Unspecified osteoarthritis, unspecified site; Z98.890 Other specified postprocedural states; Z79.899 Other long term (current) drug therapy; Z88.8 Allergy status to other drugs, medicaments and biological substances

== ENCOUNTER → 2021-02-22 | Outpatient (CLI) | payer OTHER | LOC: SJCVC 10:24 | PROVIDERS: ATTEND Internal Medicine Cardiovascular Disease | DX: R06.00 Dyspnea, unspecified (principal); R60.9 Edema, unspecified; I34.0 Nonrheumatic mitral (valve) insufficiency; R94.39 Abnormal result of other cardiovascular function study; I10 Essential (primary) hypertension; E78.00 Pure hypercholesterolemia, unspecified; M16.12 Unilateral primary osteoarthritis, left hip; M17.10 Unilateral primary osteoarthritis, unspecified knee; M48.00 Spinal stenosis, site unspecified; K21.9 Gastro-esophageal reflux disease without esophagitis; E78.5 Hyperlipidemia, unspecified; Z79.899 Other long term (current) drug therapy; Z88.8 Allergy status to other drugs, medicaments and biological substances; Z86.79 Personal history of other diseases of the circulatory system; Z98.890 Other specified postprocedural states; Z82.49 Family history of ischemic heart disease and other diseases of the circulatory system ==

== ENCOUNTER → 2021-03-02 | Outpatient (CLI) | payer OTHER ==
[~2021-03-02] VITALS: Ht 160 cm; Wt 71.9 kg
[~2021-03-02] MED LIST changes: +COZAAR 25 MG TA25 M1 PO; +FUROSEMIDE 20 M20 MG PO
--- NOTE | ~2021-03-02 | HPC ---
[facility] [place] [address] PAIN MANAGEMENT CONSULTATION Name: KELSEY FOWLER Room #: REG MIKEL Jones.#: [id number] Admission: 03/02/21 Attend Phys: Lj Cid DO Discharge: Date of : 51 Report #: [id number] THIS REPORT FOR: cc: Ashley Cerna MD, Cora A. MD Johnson, James E. DO ~ cc: Ashley Cerna MD DATE OF SERVICE: 03/02/2021 DATE OF SERVICE: 03/02/2021. CHIEF COMPLAINT: Low back pain, right lower extremity pain with paresthesias. HISTORY OF PRESENT ILLNESS: As you know, the patient is a very pleasant 65-year-old female, who returns today in followup visit with recurrence of low back pain, right lower extremity pain with paresthesias. The patient reports excellent benefit with the previous lumbar epidural injection, noticing an improvement of greater than 85%, lasting for weeks. Unfortunately, her symptoms have reoccurred. She returns today in followup visit, requesting to undergo lumbar epidural injection under fluoroscopic guidance to address lumbar radicular pain. She has had no changes in medication management since her last visit, which would preclude the patient from undergoing an injection as requested. ALLERGIES: CODEINE, AMOXICILLIN AND VANCOMYCIN. CURRENT MEDICATIONS: See chart. SOCIAL HISTORY: The patient denies tobacco, alcohol or IV or illicit drug use. She is retired, retired years ago, unaccompanied today. IMAGING: No new imaging available. PQRS: Known arthritic changes of the lumbar spine, bilateral hips, knees and ankles. No rheumatoid arthritis. She is placing current pain today at a level of 6/10. She is not a fall risk, has not had a fall in last 3 months. She is not on blood thinners nor is she is treated for hypertension. She is on chronic opioids, has a low opiate addiction potential based on assessment tool. Pain impact is remaining high 45/70, moderate to severe interference of daily activities secondary to pain. PHYSICAL EXAMINATION: VITAL SIGNS: Blood pressure 106/70, pulse 76, respiratory rate 16 and unlabored. The patient 97% on room air. GENERAL: A well-developed, well-nourished, well-hydrated 65-year-old female appearing stated age, pain is rated up to 6/10. [address] [address] PAIN MANAGEMENT CONSULTATION Name: KELSEY FOWLER Room #: REG MIKEL JonesVarinder#: [id number] Admission: 03/02/21 Attend Phys: Lj Cid DO Discharge: Date of : 51 Report #: [id number] HEENT: Normocephalic, atraumatic. Pupils equal, round and responsive. EXTREMITIES: Show no clubbing, no cyanosis. No appreciable edema. MUSCULOSKELETAL: Lower extremity strength is symmetrical. Seated straight leg raising negative. Supine straight leg raising is positive on the right. Fabere's test is negative. Modified Gaenslen's positive for axial low back pain. ASSESSMENT: 1. Symptomatic lumbar radiculopathy. 2. Lumbosacral spondylosis with radiculopathy. 3. Displacement of lumbar intervertebral disk with radiculopathy. 4. Facet arthropathy, lumbar spine. 5. Chronic intractable pain. PLAN: 1. The patient returns today in followup visit to undergo lumbar epidural injection under fluoroscopic guidance to address low back pain and right lower extremity symptoms. She has been advised the risks and benefits of the procedure, states understood and wished to proceed. 2. The patient reports that she is planning to undergo surgery to address the left hip. She has been evaluated by Orthopedics and they have tentatively placed scheduled for April to undergo total hip arthroplasty. She has undergone an intra-articular hip injection, which she reported as extremely painful, but has seen some benefit with that procedure. She is hopeful that her symptoms will remain at a low level until her surgery in April. She will be following up with her Orthopedic Surgeon in regards to this issue. 3. We will plan to see the patient back in followup visit on an as needed basis for the next in a series of lumbar epidural injections. PROCEDURE NOTE DESCRIPTION OF PROCEDURE: L5-S1 right paramedian epidural steroid injection under fluoroscopic guidance. After obtaining written consent, the patient was taken back to fluoroscopy suite, placed in prone position with pillow under abdomen to decrease lumbar lordosis. Skin overlying lumbosacral area prepped and draped in aseptic fashion. The L5-S1 vertebral interspace was identified by AP fluoroscopy. Skin and subcutaneous tissue was anesthetized with 3 mL of 1% lidocaine. A 20 gauge 3-1/2 inch Tuohy needle advanced under fluoroscopic guidance towards the epidural space using a right paramedian approach. Epidural space identified using loss of resistance to air technique. After negative aspiration for heme or cerebrospinal fluid, 1 mL of Omnipaque injected. Lumbar epidurogram confirmed using both AP and lateral fluoroscopy. After negative aspiration for heme or cerebrospinal fluid, 5 mL solution containing 2 mL 40 mg per mL 80 mg total triamcinolone along with 3 mL of lidocaine, 1% injected slowly. Needle [facility] [address] [place] [address] PAIN MANAGEMENT CONSULTATION Name: KELSEY FOWLER Room #: REG CLI Varinder#: [id number] Admission: 03/02/21 Attend Phys: Lj Cid DO Discharge: Date of : 51 Report #: [id number] retracted senior care flushed with 1 mL of 1% lidocaine, then removed. Sterile bandage placed over injection site. No new motor deficits present in the lower extremity following procedure. The patient tolerated the procedure well, carefully escorted to recovery room in stable condition. No apparent complications. After meeting discharge criteria, the patient discharged home. By: [id number] Lj Cid DO /nt
[2021-03-02 09:28] VITALS: BP 106/70
--- NOTE | 2021-03-02 09:38 | NUR ---
Pain Clinic Assessment: 1. History of Osteoarthritis: Left Lower Extremity Left Upper Extremity Right Lower Extremity Right Upper Extremity History of Rheumatoid Arthritis: DENIES 2. Height: 5 ft. 3 in. 160.0 cm. Weight: 158.6 lb. oz. 71.940 kg. Patient's BMI: 28.1 3. Vital Signs: BP: 106/70 Pulse: 76 Resp: 16 Temp: 02 Sat: 97 ECG Mon: 4. Pain Intensity: 6 5. Fall Risk: Dizziness: N Needs help standing or walking: N Fallen in the last 3 months: N Fall risk comments: 6. Patient on Blood Thinner: None 7. History of Hypertension: Y 8. Opioid Therapy greater than 6 weeks: Y Opiate Contract Signed: 9. Risk Assessment Tool Provided: LOW-0 10. Functional Assessment Tool: 50/70 11. Recreational Drug Use: Never Drug Type: Tobacco Use: Former Smoker Tobacco Type: Amount or Packs/day: How Many Years: Alcohol Use: No Frequency: Quant:
== END | disposition home or self-care (01) ==
LOC: PAIN 07:05
PROVIDERS: ATTEND Anesthesiology Pain Medicine
DX: M51.16 Intervertebral disc disorders with radiculopathy, lumbar region (principal); M47.27 Other spondylosis with radiculopathy, lumbosacral region; M47.26 Other spondylosis with radiculopathy, lumbar region; G89.29 Other chronic pain

== ENCOUNTER → 2021-05-04 | Outpatient (CLI) | payer OTHER ==
[~2021-05-04] VITALS: Ht 160 cm; Wt 73.0 kg
[2021-05-04 08:53] VITALS: BP 115/70
--- NOTE | 2021-05-04 09:00 | NUR ---
Pain Clinic Assessment: 1. History of Osteoarthritis: Left Lower Extremity Left Upper Extremity Right Lower Extremity Right Upper Extremity History of Rheumatoid Arthritis: DENIES 2. Height: 5 ft. 3 in. 160.0 cm. Weight: 161.0 lb. 0 oz. 73.029 kg. Patient's BMI: 28.5 3. Vital Signs: BP: 115/70 Pulse: 72 Resp: 14 Temp: 02 Sat: 95 ECG Mon: 4. Pain Intensity: 7 5. Fall Risk: Dizziness: N Needs help standing or walking: N Fallen in the last 3 months: N Fall risk comments: 6. Patient on Blood Thinner: None 7. History of Hypertension: Y 8. Opioid Therapy greater than 6 weeks: Y Opiate Contract Signed: 9. Risk Assessment Tool Provided: LOW-0 10. Functional Assessment Tool: 50/70 11. Recreational Drug Use: Never Drug Type: Tobacco Use: Former Smoker Tobacco Type: Amount or Packs/day: How Many Years: Alcohol Use: No Frequency: Quant:
--- NOTE | 2021-05-05 08:05 | HPC ---
[facility] [address] [place] [address] PAIN MANAGEMENT CONSULTATION Name: KELSEY FOWLER Room #: REG MIKEL Jones.#: [id number] Admission: 05/04/21 Attend Phys: Lj Cid DO Discharge: Date of : 51 Report #: [id number] THIS REPORT FOR: cc: Ashley Cerna MD, Cora A. MD Johnson, James E. DO ~ cc: Ashley Cerna MD DATE OF SERVICE: 05/04/2021 CHIEF COMPLAINT: Low back pain, right lower extremity pain with paresthesias, intermittent left lower extremity pain. HISTORY OF PRESENT ILLNESS: As you know, the patient is a very pleasant 65-year-old female with longstanding history of lumbar radiculopathy, mainly involving the low back and right lower extremity, but periodically even involves left lower extremity. She does very well with epidural injections under fluoroscopic guidance. The most recent providing up to 80% improvement in overall pain until just recently where she has had a slow and progressive recurrence of pain. She is now placing pain score 7/10. She describes the pain as constant, dull, sharp, burning, aching, numbness and tingling when describing symptoms. She returns today in followup visit requesting a lumbar epidural injection under fluoroscopic guidance to address recurrent lumbar radicular pain. ALLERGIES: CODEINE, AMOXICILLIN AND VANCOMYCIN. CURRENT MEDICATIONS: Furosemide 20 mg once a day, losartan 25 mg per day, loratadine 10 mg once a day, famotidine 40 mg once a day, multivitamin 1 tab per day, calcium carbonate 1 tab per day, vitamin D2 50 mcg per day, oxycodone IR 10 mg every 12 hours p.r.n., methadone 10 mg b.i.d., levothyroxine 125 mcg per day. SOCIAL HISTORY: The patient denies tobacco, alcohol, IV or illicit drug use. She is retired, retired years ago, unaccompanied today. IMAGING: No new imaging available. PQRS: The patient has known arthritic changes of the cervical spine, lumbar spine, bilateral hips and knees. No rheumatoid arthritis. She is placing pain intensity today 01/23. She is not a fall risk, has not had a fall in last 3 months. She is not on blood thinners, but is treated for hypertension. She is on chronic opioids, has a low opiate addiction potential based on assessment tool. Pain impact today is rated at 50 of 70, severe interference of daily activities secondary to pain. PHYSICAL EXAMINATION: VITAL SIGNS: Blood pressure 115/70, pulse 72, respiratory rate [address] [address] PAIN MANAGEMENT CONSULTATION Name: KELSEY FOWLER MARY Room #: REG [facility].#: [id number] Admission: 05/04/21 Attend Phys: Lj Cid DO Discharge: Date of : 51 Report #: [id number] unlabored. The patient 95% on room air. Height 5 feet 3 inches tall, weight 161 pounds, BMI calculated 28.5. GENERAL: Well-developed, well-nourished, well-hydrated 65-year-old female appearing stated age, pain is rated today 7/10. HEENT: Normocephalic, atraumatic. Pupils are round and responsive. She is in a mask in compliance with COVID-19 regulations in hospital policy. EXTREMITIES: Show no clubbing, no cyanosis. No appreciable edema. MUSCULOSKELETAL: Lower extremity strength is symmetrical. Seated straight leg raising negative. Supine straight leg raising positive on the right. Reginaldo's test is positive bilaterally. Modified Gaenslen's positive for axial back pain. Ankle clonus negative. Babinski is negative. Gait is antalgic. ASSESSMENT: 1. Symptomatic lumbar radiculopathy. 2. Displacement of lumbar intervertebral disk with radiculopathy. 3. Lumbosacral spondylosis with radiculopathy. 4. Facet arthropathy of lumbar spine. 5. Osteoarthritis of the bilateral hips. 6. Chronic intractable pain. PLAN: 1. The patient returns today in followup visit requesting to undergo lumbar epidural injection under fluoroscopic guidance. She reports about an 80% improvement in overall pain with the epidural injection provided at last visit. Unfortunately, her symptoms have reoccurred. There has been no inciting injury or trauma. The patient returns requesting a lumbar epidural injection to be performed today. She has been advised of the risks and benefits of the procedure, states understood and wished to proceed. 2. No medication changes made at today's visit. The patient will continue current medical therapy as prior prescribed. 3. We plan to see the patient back for a followup visit on an as needed basis for the next in the series of lumbar epidural injections. We are hopeful the patient will once again see good and prolonged benefit with the procedure provided today. PROCEDURE NOTE DESCRIPTION OF PROCEDURE: L5-S1 interlaminar epidural steroid injection under fluoroscopic guidance. After obtaining written consent, the patient was taken back to fluoroscopy suite, placed in prone position with pillow under abdomen to decrease lumbar lordosis. Skin overlying lumbosacral area prepped and draped in aseptic fashion. The L5-S1 vertebral interspace was identified by AP fluoroscopy. Skin and subcutaneous tissue overlying target site injection anesthetized with 3 mL 1% lidocaine. [address] [address] PAIN MANAGEMENT CONSULTATION Name: KELSEY FOWLER Room #: REG [facility]#: [id number] Admission: 05/04/21 Attend Phys: Lj Cid DO Discharge: Date of : 51 Report #: [id number] A 20 gauge 3-1/2 inch Tuohy needle advanced under fluoroscopic guidance towards the epidural space using a parasagittal approach. Epidural space identified using loss of resistance to air technique. After negative aspiration for heme or cerebrospinal fluid, 1 mL of Omnipaque injected. A lumbar epidurogram was confirmed using both AP and lateral fluoroscopy. After negative aspiration for heme or cerebrospinal fluid, 5 mL solution containing 2 mL 40 mg per mL 80 mg total triamcinolone along with 3 mL of 1% injected slowly. Needle retracted skilled nursing flushed with 1 mL of 1% lidocaine, then removed. Sterile bandage placed over injection site. No new motor deficits present in lower extremity following procedure. The patient tolerated the procedure well, carefully escorted to recovery room in stable condition. No apparent complications. After meeting discharge criteria, the patient discharged home. <ELECTRONICALLY SIGNED> By: Lj Cid DO 05/05/21 [id number] Lj Cid DO /nt
== END | disposition home or self-care (01) ==
LOC: PAIN 06:57
PROVIDERS: ATTEND Anesthesiology Pain Medicine
DX: M51.16 Intervertebral disc disorders with radiculopathy, lumbar region (principal); M47.27 Other spondylosis with radiculopathy, lumbosacral region; M47.26 Other spondylosis with radiculopathy, lumbar region; M16.0 Bilateral primary osteoarthritis of hip; G89.29 Other chronic pain; I10 Essential (primary) hypertension; M19.90 Unspecified osteoarthritis, unspecified site; Z98.890 Other specified postprocedural states; Z79.899 Other long term (current) drug therapy; Z79.891 Long term (current) use of opiate analgesic

== ENCOUNTER → 2021-06-25 | Outpatient (CLI) | payer OTHER | LOC: SJCVCIMAG 08:44 | PROVIDERS: ATTEND Internal Medicine Cardiovascular Disease | DX: R94.31 Abnormal electrocardiogram [ECG] [EKG] (principal); I08.3 Combined rheumatic disorders of mitral, aortic and tricuspid valves; R60.9 Edema, unspecified; I10 Essential (primary) hypertension; E78.00 Pure hypercholesterolemia, unspecified; M19.90 Unspecified osteoarthritis, unspecified site; K21.9 Gastro-esophageal reflux disease without esophagitis; E78.5 Hyperlipidemia, unspecified; Z79.899 Other long term (current) drug therapy; Z88.1 Allergy status to other antibiotic agents; Z88.0 Allergy status to penicillin; Z88.5 Allergy status to narcotic agent ==

== ENCOUNTER → 2021-07-06 | Outpatient (CLI) | payer OTHER ==
[~2021-07-06] VITALS: Ht 160 cm; Wt 68.8 kg
[2021-07-06 08:51] VITALS: BP 128/80
--- NOTE | 2021-07-06 09:04 | NUR ---
Pain Clinic Assessment: 1. History of Osteoarthritis: Left Lower Extremity Left Upper Extremity Right Lower Extremity Right Upper Extremity History of Rheumatoid Arthritis: DENIES 2. Height: 5 ft. 3 in. 160.0 cm. Weight: 151.6 lb. oz. 68.765 kg. Patient's BMI: 26.9 3. Vital Signs: BP: 128/80 Pulse: 89 Resp: 14 Temp: 02 Sat: 98 ECG Mon: 4. Pain Intensity: 5 5. Fall Risk: Dizziness: N Needs help standing or walking: Y Fallen in the last 3 months: N Fall risk comments: 6. Patient on Blood Thinner: None 7. History of Hypertension: Y 8. Opioid Therapy greater than 6 weeks: Y Opiate Contract Signed: 9. Risk Assessment Tool Provided: LOW-0 10. Functional Assessment Tool: 50/70 11. Recreational Drug Use: Never Drug Type: Tobacco Use: Former Smoker Tobacco Type: Amount or Packs/day: How Many Years: Alcohol Use: No Frequency: Quant:
--- NOTE | 2021-07-07 07:54 | HPC ---
[facility] [place] [address] PAIN MANAGEMENT CONSULTATION Name: KELSEY FOWLER Room #: REG MIKLE Jones.#: [id number] Admission: 07/06/21 Attend Phys: Lj Cid DO Discharge: Date of : 51 Report #: [id number] THIS REPORT FOR: cc: Ashley Cerna MD, Cora A. MD Johnson, James E. DO ~ cc: Ashley Cerna MD DATE OF SERVICE: 07/06/2021 CHIEF COMPLAINT: Low back pain, bilateral lower extremity pain with paresthesias. HISTORY OF PRESENT ILLNESS: As you know, the patient is a very pleasant 65-year-old female with longstanding history of lumbar radiculopathy involving low back and bilateral lower extremities, right greater than left. As you are aware, the patient underwent left hip arthroplasty in April with excellent improvement in her hip pain. She continues to experience low back pain, right lower extremity pain consistent with lumbar radiculopathy. The patient reports the injection on 05/04/2021 gave 85% improvement in overall pain until just recently where she has had a slow and progressive return of symptoms. She returns today requesting next in the series of lumbar epidural injections in hopes of building on success of previous intervention. She is placing pain today 11/23. ALLERGIES: CODEINE, AMOXICILLIN, AND VANCOMYCIN. CURRENT MEDICATIONS: See chart. SOCIAL HISTORY: The patient denies tobacco, alcohol or illicit drug use. She is retired, retired years ago, unaccompanied today. IMAGING: No new imaging available. PQRS: The patient has known arthritic changes of the cervical spine, lumbar spine, bilateral hips, status post left total hip arthroplasty and bilateral knees. No rheumatoid arthritis. Placing pain intensity today 5/10. She is a fall risk, but has not had a fall in last 3 months. She utilizes a cane currently and she is still slightly off balance after undergoing left hip arthroplasty. She is not on blood thinners, but is treated for hypertension. She is on chronic opioids and has a low opioid addiction potential based on assessment tool. Pain impact is 50 of 70, [id number]-ot-[id number] interference of daily activities secondary to pain. PHYSICAL EXAMINATION: VITAL SIGNS: Blood pressure 128/80, pulse is 89, respiratory rate 14 and unlabored. The patient 98% on room air. Height 5 feet 3 inches tall, weight [facility] [address] [place] [address] PAIN MANAGEMENT CONSULTATION Name: KELSEY FOWLER Room #: REG [id number] Admission: 07/06/21 Attend Phys: Lj Cid DO Discharge: Date of : 51 Report #: [id number] 151.6 pounds, BMI calculated 26.9. GENERAL: A well-developed, well-nourished, well-hydrated 65-year-old female appearing stated age, pain is rated today 5/10. HEENT: Normocephalic, atraumatic. Pupils are round and responsive. She is wearing a mask in compliance with COVID-19 regulations in hospital policies. EXTREMITIES: Show no clubbing, no cyanosis, no edema. MUSCULOSKELETAL: Lower extremity strength is symmetrical, 5/5, though there is a slight giveaway strength noted on the left due to pain generated over the left hip. Seated straight leg raising negative. Supine straight leg raising positive on the right. Reginaldo's test is negative. Gait is mildly antalgic. ASSESSMENT: 1. Symptomatic lumbar radiculopathy. 2. Displacement of lumbar intervertebral disk with radiculopathy. 3. Lumbosacral spondylosis with radiculopathy. 4. Facet arthropathy of lumbar spine. 5. Osteoarthritis of the bilateral hips, status post left hip arthroplasty. 6. Chronic intractable pain. PLAN: 1. The patient returns today in followup visit requesting to undergo lumbar epidural injection under fluoroscopic guidance. She reports an 85% improvement in symptoms since the epidural injection in April. Unfortunately, the patient's symptoms have reoccurred to a level of 5/10. She returns today requesting a lumbar epidural injection under fluoroscopic guidance. She has been advised risks and benefits of the procedure, states understood and wished to proceed. 2. No medication changes made at today's visit. The patient will continue current medical therapy. 3. We will see the patient back in followup visit on an as needed basis for the next in the series of lumbar epidural injections. We are please see she has done well with epidural injections and we are hopeful she will continue to see improvement with the next in the series. PROCEDURE NOTE DESCRIPTION OF PROCEDURE: L5-S1 right parasagittal epidural steroid injection under fluoroscopic guidance. After obtaining written consent, the patient was taken back to fluoroscopy suite, placed in prone position, pillow under abdomen to decrease lumbar lordosis. Skin overlying lumbosacral area prepped and draped in aseptic fashion. L5-S1 vertebral interspace identified by AP fluoroscopy. Skin and subcutaneous tissue overlying target site injection anesthetized with 3 mL 1% lidocaine. [address] [address] PAIN MANAGEMENT CONSULTATION Name: KELSEY FOWLER Room #: REG MIKEL Colón#: [id number] Admission: 07/06/21 Attend Phys: Lj Cid DO Discharge: Date of : 51 Report #: [id number] A 20 gauge 3-1/2 inch Tuohy needle advanced under fluoroscopic guidance towards the epidural space using a right parasagittal approach. Epidural space identified using loss of resistance to air technique. After negative aspiration for heme or cerebrospinal fluid, 1 mL of Omnipaque injected. A lumbar epidurogram was confirmed using both AP and lateral fluoroscopy. After negative aspiration for heme or cerebrospinal fluid, 5 mL solution containing 2 mL 40 mg per mL 80 mg total triamcinolone along with 3 mL of lidocaine, 1% injected slowly. Needle retracted mcc flushed with 1 mL of 1% lidocaine and removed. Sterile bandage placed over injection site. No new motor deficits present in the lower extremities following procedure. The patient tolerated the procedure well, carefully escorted to recovery room in stable condition. No apparent complications. After meeting discharge criteria, the patient discharged home. <ELECTRONICALLY SIGNED> By: Lj Cid DO 07/07/21 [id number] Lj Cid DO /nt
== END | disposition home or self-care (01) ==
LOC: PAIN 06:58
PROVIDERS: ATTEND Anesthesiology Pain Medicine
DX: M51.16 Intervertebral disc disorders with radiculopathy, lumbar region (principal); M47.27 Other spondylosis with radiculopathy, lumbosacral region; M47.26 Other spondylosis with radiculopathy, lumbar region; M16.0 Bilateral primary osteoarthritis of hip; G89.29 Other chronic pain; I10 Essential (primary) hypertension; M19.90 Unspecified osteoarthritis, unspecified site; Z98.890 Other specified postprocedural states; Z79.899 Other long term (current) drug therapy